=== PATIENT | female | born 1940 | race Caucasian/White ===

== ENCOUNTER 2017-01-20 20:56 | Inpatient (IN) | payer MEDICARE, OTHER ==
[~2017-01-20] VITALS: Ht 157.5 cm; Wt 64.1 kg
[~2017-01-20 20:56] MED LIST: ALEN70TA2 PO; ASCO-294 PO; ASCO500C6 PO; BUSP5TAB3 PO; CHOL10008 PO; CIPR-231 PO; KLO1T PO; LAMO200T PO; LORA1TAB PO; LORA2TAB PO; METR500T PO; MULT1CAP33 PO; PRIM50TA PO; PROP10TA8 PO; SIMV40TA5 PO; VENL75TA3 PO
[2017-01-20 22:16] VITALS: BP 143/89; PULSE 103; RESP 18; O2SAT 95
[2017-01-20 22:46] LABS: BASOPHILS % (AUTO) 0.1 % (0-3); EOSINOPHILS % (AUTO) 1.8 % (0-5); MONOCYTES % (AUTO) 12.6 % (4-12); Mean Corpuscular Volume 94.2 fL (81-100); NEUTROPHILS % (AUTO) 65.2 % (40-74); Platelet Count 276 bil/L (150-400)
[2017-01-20 23:08] LABS: Magnesium 2.1 mg/dL (1.6-2.6)
[2017-01-20 23:56] LABS: APPEARANCE,URINE SLIGHTLY CLOUDY (CLEAR,HAZY); COLOR,URINE STRAW (YELLOW); OCCULT BLOOD,URINE NEGATIVE (NEGATIVE); PH,URINE 8.5 (5.0-8.0); UROBILINOGEN,URINE NORMAL (NORMAL)
--- NOTE | 2017-01-20 23:59 | ED.REPORT ---
HPI-Abd Pain F 40 and Over Date of Service Jan 20, 2017 ED Provider: Dr. Rickey Polo M.D. A 76 year old female with a medical history including diverticulitis, seizure disorder, and hypertension presents to the ED with intermittent LLQ abdominal pain onset one week ago, worsening today. The patient denies nausea, vomiting, diarrhea, constipation, dysuria, fever, or other symptoms. She has had similar symptoms in the past associated with diverticulitis. Nursing Notes Stated Complaint: LOWER ABDOMINAL PAIN Chief Complaint: Female Abdominal Pain Nursing Notes Reviewed: Yes Allergies: Coded Allergies: peanut oil (Verified Allergy, Mild, 01/20/17) Egg White (Verified Allergy, Unknown, 01/20/17) Egg Yolk (Verified Allergy, Unknown, 01/20/17) [place] (Verified Allergy, Unknown, 01/20/17) peanut (Verified Allergy, Unknown, 01/20/17) Scheduled Alendronate Sodium (Fosamax) 70 Mg Tablet 70 MG PO QW Buspirone (Buspirone) 5 Mg Tablet 5 MG PO BID Calcium Carbonate/Vitamin D3 (Os-Ranulfo 500+D3 Caplet) 500 Mg-600 Tablet 1 EACH PO DAILY Lamotrigine (Lamictal) 200 Mg Tablet 250 MG PO AM Lamotrigine (Lamictal) 200 Mg Tablet 250 MG PO HS Multivitamin (Multivitamins) 1 Each Capsule 1 EACH PO DAILY Primidone (Primidone) 50 Mg Tablet 150 MG PO AM Primidone (Primidone) 50 Mg Tablet 200 MG PO HS Primidone (Primidone) 50 Mg Tablet 150 MG PO at 1400 Simvastatin (Simvastatin) 40 Mg Tablet 40 MG PO HS Venlafaxine (Venlafaxine) 75 Mg Tablet 38.5 MG PO AM Scheduled PRN Lorazepam (Lorazepam) 2 Mg Tablet 0.5 MG PO PRN PRN PRN For Insomnia Lorazepam (Lorazepam) 1 Mg Tablet 1 MG PO TID PRN PRN For Anxiety General Time Seen by MD: 23:59 Chief Complaint Abdominal pain Hx Obtained From: Patient Arrived By: Walk-in Sudden in Onset?: No Onset Occurred: 1 week ago Symptom Duration: Intermittent Progression since Onset: Gradually worsening Location: : LLQ Quality: Painful Severity: Current: Moderate Severity: Maximum: Moderate Pertinent Negative: Relieved by nothing Context Related History: Reports: Abdominal surgery, Diverticulosis Recent Healthcare: No recent doctor visit Similar Sx Previous: Yes Past Medical History Past Medical History Notes: Meds not reconciled: Pt has a paper list: Medical 200 mg twice a day Primidone 50 mg 2 in the morning for a bedtime Propranolol 10 mg in the morning Lorazepam 2 mg when necessary Simvastatin 40 mg by mouth daily Clonazepam 1 mg at dinnertime Venlafaxine 75 mg in the morning Buspirone 5 mg at dinnertime Alendronate 70 mg a week Multivitamins and probiotics Past Medical History 1. Diverticulitis 2. Seizure Disorder 3. Hypertension 4. Depression 5. Insomnia 6. Asthma Past Surgical History 1. Tonsillectomy 2. Ovarian Fibroid Removal 3. x2 4. Appendectomy 5. Tubal Ligation 6. Hysterectomy Smoking History Never Smoker Social History Alcohol Use: Denies alcohol use Drug Use: Denies drug use Other Social History: Ambulatory Status Independent Review of Systems Constitutional: Denies: Fever Respiratory: Denies: Non-productive cough, Shortness of breath GI: Reports: Abdominal pain (LLQ), Denies: Constipation, Diarrhea, Nausea, Vomiting Female: Denies: Dysuria Complete sys rev & neg: except as marked. Physical Exam Vital Signs Vital Signs (First) Date Time Temp Pulse Resp B/P Pulse Ox O2 Delivery O2 Flow Rate FiO2 01/20/17 22:16 37.1 103 18 143/89 95 Room Air Initial VS: Reviewed Head / Eyes: Atraumatic, Normocephalic Neck: Supple, Full range of motion Skin: Warm, Dry Neurologic: Alert, Oriented Psychiatric: Mood/affect normal, Behavior normal General/Constitutional: Awake, Alert Respiratory / Chest: Breath sounds NL, Breath sounds = bilat, No respiratory distress Cardiovascular: Heart rate NL, Regular rhythm, Heart sounds NL, No gallop, No murmurs, No rubs Abdomen: Soft, BS normoactive Tenderness/Guarding/Rebound: Positive: Guarding voluntary (LLQ), Tender LLQ... Back: Inspection NL, No CVA tenderness Interpretation & Diagnostics Lab Results Interpretation Result Diagram: 01/20/17223401/20/172234 Test 01/20/17 22:35 01/20/17 23:43 White Blood Count 9.2th/mm3 (3.8-10.1) Red Blood Count 4.16mil/mm3 (3.90-5.20) Hemoglobin 13.3g/dL (12.0-15.6) Hematocrit 39.2% (35.0-46.0) Mean Corpuscular Volume 94.2fL (81-100) Mean Corpuscular Hemoglobin 32.0pg (27.0-35.0) Mean Corpuscular Hemoglobin Concent 33.9% (32.0-37.0) Red Cell Distribution Width 13.8% (12.3-15.4) Platelet Count 276bil/L (150-400) Neutrophils (%) (Auto) 65.2% (40-74) Lymphocytes (%) (Auto) 20.1% (14-46) Monocytes (%) (Auto) 12.6% (4-12) Eosinophils (%) (Auto) 1.8% (0-5) Basophils (%) (Auto) 0.1% (0-3) Sodium Level 139mEq/L (134-144) Potassium Level 4.0mEq/L (3.5-5.2) Chloride Level 100mEq/L (97-108) Carbon Dioxide Level 26mmol/L (18-29) Blood Urea Nitrogen 11mg/dL (8-27) Creatinine 0.64mg/dL (0.57-1.00) Estimat Glomerular Filtration Rate 130mL/min (>59) Glucose Level 120mg/dL (60-99) Calcium Level 9.1mg/dL (8.5-10.1) Magnesium Level 2.1mg/dL (1.6-2.6) Total Bilirubin 0.2mg/dL (0.0-1.2) Aspartate Amino Transf (AST/SGOT) 25U/L (0-50) Alanine Aminotransferase (ALT/SGPT) 17U/L (0-32) Alkaline Phosphatase 132U/L (25-165) Total Protein 7.8g/dL (6.4-8.4) Albumin 4.4g/dL (3.4-5.0) Lipase 24U/L (13-60) Hold [place] Top Tube Received (Received) Urine Color Straw (YELLOW) Urine Appearance Slightly cloudy Urine pH 8.5 (5.0-8.0) Urine Specific [place] 1.010 (1.003-1.035) Urine Protein Negativemg/dL (NEG,TRACE) Urine Glucose (UA) Negativemg/dL (NEGATIVE) Urine Ketones Negativemg/dL (NEGATIVE) Urine Occult Blood Negative (NEGATIVE) Urine Nitrite Negative (NEGATIVE) Urine Bilirubin Negative (NEGATIVE) Urine Urobilinogen Normalmg/dL (NORMAL) Urine Leukocyte Esterase Trace (NEGATIVE) Urine RBC 0-2/hpf (0-2) Urine WBC 0-5/hpf (0-5) Urine Epithelial Cells Occasional/hpf (NONE-MOD) Urine Crystals Amorphous phosphates Urine Bacteria Few/hpf (NONE-FEW) Urine Hyaline Casts None/lpf (NONE) Urine Granular Casts None seen (NONE SEEN) Urine Waxy Casts None seen (NONE SEEN) Urine Red Blood Cell Casts None seen (NONE SEEN) Urine White Blood Cell Casts None seen (NONE SEEN) Urine Mucus None seen (None Seen) Urine Trichomonas None seen (NONE SEEN) Urine Yeast None (NONE SEEN) Urinalysis Comment None Urine Culture Reflexed Indicated CT Abd / Pelvis Interpretation CONCLUSION: Acute sigmoid diverticulitis. Cannot completely exclude microperforation, see comments. Transmitted to ED by Talia Landaverde M.D. at 01/21/2017 - 1:14:16 AM PDT Study type: Abdominal CT IV contrast Interpretation / Wet Read by: Interpret - Radiologist Re-Eval/Medical Decision Med Decision/Clinical Course Recurrent diverticulitis. No findings on exam and possible microperforation was on imaging. She appears nontoxic with a normal white count. We have started Levaquin and Flagyl intravenously. The patient is to be held nothing by mouth. She will be admitted to the hospitalist service with surgery consulting. CODE STATUS discussed with patient. Full code Source of Hx: Old records Re-Evaluation/Progress : Time of Eval: 01:48 Patient Status: Condition improved Re-Evaluation/Progress Note: Discussed with patient lab and CT results, diagnosis, and plan for admit. Patient agrees with plan for care and all questions were addressed. Discussed code status in the presence of her . Patient is FULL CODE. Consultation #1: Referral / Consult Name: Aiswharya Hughes DO Consulted With: Hospitalist Call Returned at: 01:56 Seismic Interpreter: Agrees with eval, Agrees with plan, Accepts admit Consultation #2: Referral / Consult Name: Liborio Chavez MD Consulted With: Surgeon Call Returned at: 02:00 Seismic Interpreter: Will see patient, Agrees with eval, Agrees with plan Counseled Regarding: Diagnosis, Lab results, Need for admission Discharge & Departure Primary Impression: Diverticulitis Diverticulitis site: large intestine Diverticulitis bleeding: without bleeding Diverticulitis complication: with perforation Qualified Code: K57.20 - Diverticulitis of large intestine with perforation and abscess without bleeding Disposition: ADMITTED TO HOSPITAL Discharge Condition All VS Reviewed: Yes Condition: Improved Referrals: Rocio Gipson (PCP) Janell Attestation Portions of this note were transcribed by Chelsea Cannon. I, Dr. Polo, personally performed the history, physical exam, and medical decision-making; I reviewed and confirmed the accuracy of the information in the transcribed note. Signed by: Janell Paris, 01/21/2017, 02:25 copies to: Rocio Gipson Donald L MD Jan 20, 2017 23:59 CHELSEA CANNON January 21, 2017 00:08
[2017-01-21] MEDS ORDERED: lamoTRIgine 25 mg Tablet PO ONE (00:10)
[2017-01-21] MEDS ORDERED: lamoTRIgine 100 mg Tablet PO ONE (00:10)
[2017-01-21] MEDS ORDERED: HYDROmorphone 0.5 mg/0.5 mL iSecure Syringe IVPUSH PRN (00:10)
[2017-01-21] MEDS ORDERED: Ondansetron 2 mg/mL 2 mL Inj IVPUSH PRN ×3 (00:10→02:30)
[2017-01-21] MEDS ORDERED: 0.9% Sodium Chloride 500 ML IV ONE (00:10)
[2017-01-21] MEDS ORDERED: metroNIDAZOLE Inj 500 MG in IV Premix 1 EACH IV ONE (01:50)
[2017-01-21] MEDS ORDERED: levoFLOXacin Inj 500 MG in IV Premix 1 EACH IV ONE (01:50)
[2017-01-21] MEDS: 0.9% Sodium Chloride 1,000 ML IV SCH ×3 (02:29→17:49)
[2017-01-21] MEDS ORDERED: 0.9% Sodium Chloride 1,000 ML IV SCH (02:29)
[2017-01-21] MEDS ORDERED: Alum-Mag Hydrox-Simeth 30 mL Suspension PO PRN (02:30)
[2017-01-21] MEDS ORDERED: Polyethylene Glycol (PEG) 17 Gm Powder PO PRN (02:30)
--- NOTE | 2017-01-21 02:30 | PCM.HPMED ---
Subjective Date of Service January 21, 2017 Primary Provider: Admitting Physician: Aishwarya Hughes DO Primary Care Physician: Rocio Gipson Attending Physician: Aishwarya Hughes DO Admit Status: From the Emergency Department Chief Complaint: abd pain History of Present Illness: 76 year old female with a medical history of diverticulitis, seizure disorder, and hypertension who presented to the ED with intermittent LLQ abdominal pain onset one week ago, worsening today. Patient's reports that patient has been complaining of abdominal pain intermittently for the past week. He noticed that her pain would improve after a bowel movement usually. Today, her pain was sharp and severe, and was somewhat similar to her past episode of diverticulitis. She denies any associated nausea, vomiting, diarrhea, constipation, dysuria, fever, or other symptoms. She has not had any recent surgeries. Reports she was started on Topiramate for her tremors recently. Her seizures have been well controlled recently. In the ED, patient was mildly tachycardic and hypertensive initially, but improved with pain management. Her CBC and CMP and UA were unremarkable. She had a CT of her abdomen that was consistent with acute sigmoid diverticulitis, but microperforation could not be ruled out. Surgery was consulted and patient was placed on Levaquin and FLagyl IV. Review of Systems: complete ROS neg except as stated in HPI Allergies Coded Allergies: peanut oil (Verified Allergy, Mild, 01/20/17) Egg White (Verified Allergy, Unknown, 01/20/17) Egg Yolk (Verified Allergy, Unknown, 01/20/17) [place] (Verified Allergy, Unknown, 01/20/17) peanut (Verified Allergy, Unknown, 01/20/17) Home Medications Fosamax Vitamin C BuSpar Clonazepam 1 mg daily at bedtime Lamotrigine 200 mg twice a day Lorazepam when necessary anxiety Primidone Propranolol Simvastatin Venlafaxine PMH Diverticulosis, with previous bouts of diverticulitis. Seizure disorder since teenage years Hypertension Dyslipidemia Depression with anxiety. Asthma earlier in life, but resolved in recent years. Surgical History 1. Tonsillectomy 2. Ovarian Fibroid Removal 3. x2 4. Appendectomy 5. Tubal Ligation 6. Hysterectomy Family History Denies any fmhx of colon cancer Social History Hx Alcohol Use: No Hx Substance Use: No Hx Tobacco Use: No Smoking Status: Never Smoker Living Arrangement: with Family Exam Vital Signs Vital Sign - Last Date Time Temp Pulse Resp B/P Pulse Ox O2 Delivery O2 Flow Rate FiO2 01/20/17 22:16 37.1 103 18 143/89 95 Room Air Intake and Output 01/20/17 01/20/17 01/21/17 Cumulative From/Thru 15:00 23:00 07:00 01/20/17 22:16 - 01/21/17 00:29 Intake Total 500 ml 500 ml Balance 500 ml 500 ml Intake IV Total 500 ml 500 ml Exam Gen: Well-developed elderly female who appears in no acute distress, alert and oriented 3 HEENT: PERRLA, EOMI, sclerae anicteric, oropharynx moist and pink Neck: Soft, trachea midline, no JVD noted CV: RRR, soft systolic murmur noted, peripheral pulses intact and equal Respiratory: CTA B, no wheezing or rhonchi noted, normal respiratory effort Abdomen: Soft, nondistended, tender to palpation of left lower quadrant, mild guarding, no rebound, no rashes, normoactive bowel sounds MSK: Muscle strength grossly intact, mild tremor of both hands, no edema or cyanosis noted Neuro: Grossly intact, no focal weakness, speech fluent Skin: Warm, dry, intact Psychiatric: Appropriate mood and affect, linear thought process Lab and Diagnostics Result Diagram: 01/20/17223401/20/172234 X-Rays, CTs and MRIs CT Abd pelvis [place] read: Acute sigmoid diverticulitis, microperforation cannot be ruled out Assessment & Plan 76 year old female with a medical history of diverticulitis, seizure disorder, and hypertension who presented to the ED with intermittent LLQ abdominal pain onset one week ago, worsening today. Admitted for diverticulitis treatment #Diverticulitis, acute, Present on Admission Acute Sigmoid Diverticulitis as noted on CT, with moderate LLQ abd pain. No fevers or leukocytosis on admission. Microperforation could not be ruled out. General Surgery consulted IV Levaquin and IV Flagyl started on 01/21 IV NS at 120 mls/hr IV Dilaudid 0.5-1.0 mg for pain management NPO after midnight #Seizure Disorder, POA Stable Continue patient's home medications Med Reconciliation to be performed by Day team. #Anxiety and Depression, POA Stable Continue patient's home medications when appropriate IV Ativan prn anxiety and insomnia #Hypertension, Essential, POA Stable Continue patient's home medications when appropriate CODE STATUS: Full resuscitation Disposition: Patient is admitted under observation status with expected length of stay less than 2 nights due to his of adverse events and medical complexity. Pain Evaluation: Adequate Pain Control VTE Prophylaxis: Sub-Q Heparin (Unfractionated), SCDs Resuscitation Status: CPR: Attempt Resuscitation Attending Statement The patient was seen and examined together with house staff on 01/21/2017 and I agree with the history, exam and plan as outlined in the note above. Joseph Rob DO January 21, 2017 02:30 Aishwarya Hughes DO January 21, 2017 05:17
[2017-01-21 03:06] VITALS: BP 145/78; PULSE 69; RESP 18; O2SAT 97
[2017-01-21] MEDS ORDERED: PRIM50TA PO (03:28)
[2017-01-21] MEDS ORDERED: CALC1TAB23 PO (03:28)
[2017-01-21] MEDS ORDERED: CALC-72 PO (03:28)
--- NOTE | 2017-01-21 04:32 | NUR ---
Admit Pt admitted to [facility] at 0300 from ER. Pt able to slide by herself from gurney to bed. A/O x4, [place] equally. Pt denies pain or nausea at this time. Flagyl IV finished and Levaquin hung 100 ml/hr. NS started at 100ml/hr as well. Pt was educated on NPO diet. Pt reporting anxiety and was given Ativan 1mg IV with good result. SCDs are on. spending the night. Pt was oriented to room and call light.
[2017-01-21 06:03] LABS: BASOPHILS % (AUTO) 0.1 % (0-3); EOSINOPHILS % (AUTO) 1.1 % (0-5); MONOCYTES % (AUTO) 11.8 % (4-12); NEUTROPHILS % (AUTO) 66.2 % (40-74); Platelet Count 255 bil/L (150-400)
[2017-01-21] MEDS: Piperacillin-Tazo 3.375 Gm Inj 3.375 GM in Dextrose 5% Minibag Plus 50 ML IV SCH ×2 (08:42→16:38)
[2017-01-21] MEDS ORDERED: LAMOTRIGINE 250 MG PO SCH ×2 (08:55→21:00)
--- NOTE | 2017-01-21 09:03 | PCM.CONSUR ---
Subjective Date of Service: January 21, 2017 History of Present Illness Gen. surgery consultation: Attending physician Dr. Bryan, Resident physician Dr. Smallwood. Mrs. Holman is a 76-year-old female with past medical history of diverticulitis and hypertension with multiple abdominal surgeries who was admitted secondary to worsening left lower quadrant abdominal pain times one week. She states that over the past week her abdominal pain has increased in severity and she described it as sharp and severe just prior to admission. She reports this pain to be somewhat similar to her last episode of diverticulitis though this episode seems to be focused only in the LLQ where as in the past the pain radiating from LLQ to RLQ. She denies nausea, vomiting, diarrhea, constipation, hematochezia, fever, chills. She has had two normal bowel movements in the past 48 hrs. She was hospitalized for diverticulitis 12/2014, discharged with ABX. Endoscopy 10/2015 showed multiple colon polyps, diverticulitis and hemorrhoids. WBC has trended down from 9.2 on admit to 7.5. She remained afebrile and abdominal pain is improving. CT showed acute sigmoid diverticulitis, cannot exclude microperforation. Reason for Consultation Diverticulitis Allergy Allergies: Coded Allergies: peanut oil (Verified Allergy, Mild, 01/20/17) Egg White (Verified Allergy, Unknown, 01/20/17) Egg Yolk (Verified Allergy, Unknown, 01/20/17) [place] (Verified Allergy, Unknown, 01/20/17) peanut (Verified Allergy, Unknown, 01/20/17) Medications Alendronate Sodium (Fosamax) 70 Mg Tablet 70 MG PO QW (Reported) Amoxicillin/Clav K 875-125 mg (Augmentin 875-125 mg) 1 Each Tablet 1 TABLET PO BID Prescribed by: OLE MEJIA DO Buspirone (Buspirone) 5 Mg Tablet 5 MG PO BID (Reported) Last Taken: 5 mg on 01/20/17 0800 Calcium Carbonate/Vitamin D3 (Os-Ranulfo 500+ D3 Caplet) 500 Mg-600 Tablet 1 EACH PO DAILY (Reported) Last Taken: 1 tab on 01/20/17 0800 Lamotrigine (Lamictal) 200 Mg Tablet 250 MG PO AM (Reported) Lamotrigine (Lamictal) 200 Mg Tablet 250 MG PO HS (Reported) Last Taken: 250mg on 5/1/17 0029 Lorazepam (Lorazepam) 2 Mg Tablet 0.5 MG PO PRN PRN PRN For Insomnia (Reported) Lorazepam (Lorazepam) 1 Mg Tablet 1 MG PO TID PRN PRN For Anxiety (Reported) Multivitamin (Multivitamins) 1 Each Capsule 1 EACH PO DAILY (Reported) Last Taken: 1 tab on 01/20/17 0800 Primidone (Primidone) 50 Mg Tablet 150 MG PO AM (Reported) Primidone (Primidone) 50 Mg Tablet 200 MG PO HS (Reported) Last Taken: 200mg on 01/21/17 0029 Primidone (Primidone) 50 Mg Tablet 150 MG PO at 1400 (Reported) Simvastatin (Simvastatin) 40 Mg Tablet 40 MG PO HS (Reported) Last Taken: 40 mg on 01/19/17 2100 Topiramate (Topamax) 25 Mg Tablet 25 MG PO HS Prescribed by: OLE MEJIA DO Venlafaxine (Venlafaxine) 75 Mg Tablet 37.5 MG PO AM (Reported) Last Taken: 37.5 mg on 01/20/17 0800 Discontinued Medications Ascorbate Calcium (Vitamin C) 500 Mg Tablet 500 MG PO AM (Reported) Ascorbic Acid (Vitamin C) 500 Mg Capsule.er 500 MG PO DAILY (Reported) Calcium Carbonate/Vitamin D3 (Calcium 500 + Vit D 200 Tablet) 1 Each Tablet 1 EACH PO (Reported) Cholecalciferol (Vitamin D3) (Vitamin D3) 1,000 Unit Tab.chew 1,000 UNIT PO DAILY (Reported) Ciprofloxacin (Cipro) 500 Mg Tablet 500 MG PO BID Prescribed by: YVONNE DYER MD Clonazepam (Clonazepam) 1 Mg Tab 1 MG PO DailyPM (Reported) Metronidazole (Flagyl) 500 Mg Tablet 500 MG PO TID Prescribed by: YVONNE DYER MD Propranolol HCl (Propranolol HCl) 10 Mg Tablet 10 MG PO AM (Reported) Past Surgical History Surgeries: Yes Patient/Family Past Surgical: Positive for:: Accept Blood Products?, Denies:: Anesthesia Reactions, Blood Transfuse Reaction, Blood Transfusions, Malignant Hyperthermia Additional Information Past surgical history: 1. Tonsillectomy 2. Ovarian Fibroid Removal 3. x2 4. Appendectomy 5. Tubal Ligation 6. Hysterectomy Social History Hx Alcohol Use: No Hx Substance Use: No Hx Tobacco Use: No PMH HEENT History History of ENT Problems?: No HEENT History: Denies:: Abnormal Airway Cataracts Difficult Intubation Dysphagia Glaucoma Hearing Problem Sinus Problem Cardiovascular History History of Heart Problems?: No Cardiovascular History: Denies:: AICD Atrial Fibrillation Chest Pain Congestive Heart Failure Hypertension Pacemaker Valvular Heart Disease Respiratory History of Respiratory Problem: Yes Respiratory History: Positive for:: Asthma (flares up with cats/dogs) Denies:: COPD Cough Dyspnea Hemoptysis Pneumonia Tuberculosis Neurological History Hx Neurologic Problems?: Yes Neurological History: Positive for:: Headaches Seizures (tremors as well) Denies:: CVA Gastrointestinal History HX of GI Problems?: Yes Gastrointestinal History: Positive for:: Diverticulitis Denies:: Cirrhosis Gastroesphageal Reflux Hiatal Hernia Rectal Bleeding Genitourinary History Hx of Gu Problems?: Yes Genitourinary History: Positive for: Urinary Tract Infection Female/Male History Reproductive History Female: Denies: Currently ? Problems with Breasts? Musculoskeletal History Hx Musculoskeletal Problems?: No Musculoskeletal History: Denies:: Joint Replacement Psycho Social History Hx of Psycho/Social Problems?: Yes Psycho Social History: Positive for:: Anxiety Hx Depression Denies:: Bipolar Disorder Suicide Attempt Other History Hx Any Other Health Problems?: No Other History: Positive for:: Hospitalization (diverticulitis ) Denies:: Cancer Thyroid Disease Diabetes: No Social History Hx Alcohol Use: NoHx Substance Use: NoHx Tobacco Use: No Smoking Status: Never Smoker Living Arrangement: with Family Family History Family History: Denies any family history of colon cancer Objective Exam Vital Signs & I/O Vital Sign- Last 8 Hours Date Time Temp Pulse Resp B/P Pulse Ox O2 Delivery O2 Flow Rate FiO2 01/21/17 03:06 36.4 69 18 145/78 97 Room Air 01/21/17 02:46 37.1 103 16 143/89 95 Room Air Intake and Output- Last 8 Hour 01/21/17 Cumulative From/Thru 07:00 01/20/17 22:16 - 01/21/17 05:43 Intake Total 864 ml 864 ml Output Total 350 ml 350 ml Balance 514 ml 514 ml Intake Oral 0 ml 0 ml IV Total 864 ml 864 ml Output Urine Total 350 ml 350 ml # Bowel Movements 0 0 Lab & Micro Results Laboratory Tests Test 01/20/17 22:35 01/20/17 23:43 01/21/17 05:22 White Blood Count 9.2th/mm3 (3.8-10.1) 7.5th/mm3 (3.8-10.1) Red Blood Count 4.16mil/mm3 (3.90-5.20) 3.78mil/mm3 (3.90-5.20) Hemoglobin 13.3g/dL (12.0-15.6) 12.1g/dL (12.0-15.6) Hematocrit 39.2% (35.0-46.0) 36.3% (35.0-46.0) Mean Corpuscular Volume 94.2fL (81-100) 96.0fL (81-100) Mean Corpuscular Hemoglobin 32.0pg (27.0-35.0) 32.0pg (27.0-35.0) Mean Corpuscular Hemoglobin Concent 33.9% (32.0-37.0) 33.3% (32.0-37.0) Red Cell Distribution Width 13.8% (12.3-15.4) 13.7% (12.3-15.4) Platelet Count 276bil/L (150-400) 255bil/L (150-400) Neutrophils (%) (Auto) 65.2% (40-74) 66.2% (40-74) Lymphocytes (%) (Auto) 20.1% (14-46) 20.7% (14-46) Monocytes (%) (Auto) 12.6% (4-12) 11.8% (4-12) Eosinophils (%) (Auto) 1.8% (0-5) 1.1% (0-5) Basophils (%) (Auto) 0.1% (0-3) 0.1% (0-3) Sodium Level 139mEq/L (134-144) 143mEq/L (134-144) Potassium Level 4.0mEq/L (3.5-5.2) 4.4mEq/L (3.5-5.2) Chloride Level 100mEq/L (97-108) 104mEq/L (97-108) Carbon Dioxide Level 26mmol/L (18-29) 25mmol/L (18-29) Blood Urea Nitrogen 11mg/dL (8-27) 9mg/dL (8-27) Creatinine 0.64mg/dL (0.57-1.00) 0.60mg/dL (0.57-1.00) Estimat Glomerular Filtration Rate 130mL/min (>59) 140mL/min (>59) Glucose Level 120mg/dL (60-99) 106mg/dL (60-99) Calcium Level 9.1mg/dL (8.5-10.1) 8.6mg/dL (8.5-10.1) Magnesium Level 2.1mg/dL (1.6-2.6) Total Bilirubin 0.2mg/dL (0.0-1.2) Aspartate Amino Transf (AST/SGOT) 25U/L (0-50) Alanine Aminotransferase (ALT/SGPT) 17U/L (0-32) Alkaline Phosphatase 132U/L (25-165) Total Protein 7.8g/dL (6.4-8.4) Albumin 4.4g/dL (3.4-5.0) Lipase 24U/L (13-60) Hold [place] Top Tube Received (Received) Urine Color Straw (YELLOW) Urine Appearance Slightly cloudy Urine pH 8.5 (5.0-8.0) Urine Specific [place] 1.010 (1.003-1.035) Urine Protein Negativemg/dL (NEG,TRACE) Urine Glucose (UA) Negativemg/dL (NEGATIVE) Urine Ketones Negativemg/dL (NEGATIVE) Urine Occult Blood Negative (NEGATIVE) Urine Nitrite Negative (NEGATIVE) Urine Bilirubin Negative (NEGATIVE) Urine Urobilinogen Normalmg/dL (NORMAL) Urine Leukocyte Esterase Trace (NEGATIVE) Urine RBC 0-2/hpf (0-2) Urine WBC 0-5/hpf (0-5) Urine Epithelial Cells Occasional/hpf (NONE-MOD) Urine Crystals Amorphous phosphates Urine Bacteria Few/hpf (NONE-FEW) Urine Hyaline Casts None/lpf (NONE) Urine Granular Casts None seen (NONE SEEN) Urine Waxy Casts None seen (NONE SEEN) Urine Red Blood Cell Casts None seen (NONE SEEN) Urine White Blood Cell Casts None seen (NONE SEEN) Urine Mucus None seen (None Seen) Urine Trichomonas None seen (NONE SEEN) Urine Yeast None (NONE SEEN) Urinalysis Comment None Urine Culture Reflexed Indicated C-Reactive Protein 4.6mg/dL (0.0-0.5) Microbiology 01/20/17 Urine Culture, Received Pending Result Diagram: 01/21/1752101/21/17521 Review of Systems: A comprehensive review of systems was conducted with the patient and found to be negative except as above in the history of present illness. H&P Surgical Exam Exam Additional Information General: Awake and alert in no acute distress, well-developed, well-nourished, appropriately interactive HEENT: Normocephalic, atraumatic. Neck: Supple with full range of motion. No jugular venous distension. Cardiovascular: Regular rate and rhythm with no murmurs, rubs, or gallops appreciated Pulmonary: Clear to auscultation bilaterally upper anterior lobes with no crackles or wheezes.. Normal respiratory effort with no use of accessory muscles. Abdomen: Bowel tones present. Soft, nontender to palpation left lower quadrant. No rigidity. Mild guarding left lower quadrant. Extremities: No clubbing, cyanosis, edema, or lymphadenopathy appreciated. Skin: Normal temperature, turgor, and texture Neurological: Cranial nerves grossly intact. Psychiatric: Normal mood and affect. Alert and oriented to person, place, and time. Assessment & Plan Assessment Acute on chronic Diverticulitis. Present on admission. Ongoing - Acute sigmoid diverticulitis seen on CT, cannot rule out microperforation - Continue antibiotics Zosyn and levofloxacin - Continue IV normal saline - Continue IV Dilaudid for pain management - Continue bowel rest Gen. surgery will continue to follow this patient, conservative management with IV fluids, antibiotics and bowel rest for now VTE Prophylaxis: Sub-Q Heparin (Unfractionated), SCDs VTE Mechanical Devices: Intermittant Pneumatic CD Resuscitation Status: CPR: Attempt Resuscitation Attending Statement: I personally interviewed and examined the pt, and I agree with Dr. Smallwood's assessment and plan. IV abx and bowel rest. RAINE SMALLWOOD DO January 21, 2017 09:03 Nabeel Bryan MD January 23, 2017 14:28
[2017-01-21] MEDS ORDERED: LORazepam 1 mg Tablet PO PRN (09:05)
[2017-01-21] MEDS: Heparin 5,000 Unit/mL Inj SUBQ SCH ×2 (09:57→16:36)
[2017-01-21] MEDS: lamoTRIgine 25 mg Tablet PO SCH ×2 (09:58→20:01)
[2017-01-21] MEDS: lamoTRIgine 100 mg Tablet PO SCH ×2 (09:58→20:00)
[2017-01-21] MEDS: BusPIRone 15 mg Dividose Tablet PO SCH ×2 (09:59→20:01)
--- NOTE | 2017-01-21 10:03 | DRSVH ---
PROCEDURE: CT ABDOMEN AND PELVIS WITH CONTRAST ([id number]) INDICATIONS: llq abd pain TECHNIQUE: After the administration of intravenous contrast, 5 mm thick sections acquired from the diaphragm to the symphysis. 5 mm coronal and sagittal reformats were acquired. For radiation dose reduction, the following was used: automated exposure control, adjustment of mA and/or kV according to patient jignesh navarrete. COMPARISON: [facility], CT, ABD/PELVIS W/CON (PN), 01/02/2015, 1:35. FINDINGS: Image quality: Excellent. ABDOMEN: Lung bases: Lung bases are clear. Heart size is normal. Solid organs: Liver and spleen are normal in size and enhancement. Gallbladder is unremarkable. Bi liary system is non dilated. Pancreas enhances normally. No adrenal nodules. Kidneys demonstrate n ormal size and enhancement, without hydronephrosis. Nonobstructing punctate inferior left renal pole calcification. Peritoneum and bowel: Bowel loops are nonobstructed. There is a mild appearance of wall thickening w ithin the sigmoid colon with prominent pericolonic fat stranding. Scattered fluid is present within t his region. In addition, there is focal air within the wall of the sigmoid colon within this inflamed region. Nodes and vessels: No retroperitoneal or mesenteric adenopathy by size criteria. Aorta and inferior vena cava are normal in size. Miscellaneous: No ventral hernias. PELVIS: Genitourinary: Bladder wall thickness is normal. Miscellaneous: No inguinal hernias or adenopathy. Bones: No suspicious bony lesions. L4 compression fracture is unchanged. IMPRESSION: 1. Sigmoid colonic diverticula with wall thickening and surrounding inflammatory change most consiste nt with colitis secondary to diverticulitis. As noted above, there is a prominent focus of air within the sigmoid colonic wall at the area of prominent inflammation and fluid. A contained perforation/mi croperforation cannot be excluded. No peritoneal free air is identified. Dictated by: Stacey Mason M.D. on 01/21/2017 at 10:00 Approved by: Stacey Mason M.D. on 01/21/2017 at 10:02
[2017-01-21] MEDS ORDERED: metroNIDAZOLE Inj 500 MG in IV Premix 1 EACH IV SCH (12:00)
[2017-01-21] MEDS ORDERED: HYDROmorphone 1 mg/mL Inj IVPUSH PRN (12:25)
--- NOTE | 2017-01-21 12:37 | NUR ---
Case Management- IMM explained and signed by patient. Copy given to patient and orginal placed in chart. Dana COLBERT/SIRIA
--- NOTE | 2017-01-21 14:41 | NUR ---
Social Work: Initial Assessment D: EMR reviewed. Pt is a 76 y/o female admitted for diverticulitis per H&P. SW met with pt and at bedside to conduct initial assessment. Pt was alert and oriented x3. Pt's insurance is Medicare and Life Insurance Supplemental. Pt's PCP is CANDACE Antoine. Pt has no LTC or VA insurance. Pt has no SNF history. Pt has had HH services with [facility] in the past. Pt has completed DPOA/advanced directive ppw - SW encourage pt to provide a copy to the hospital. Pt's DPOA is rebekah Ambrosegaurilupillo. Pt lives in a multi-story (2 internal steps, 0 external steps) home with Lalo Holman in [place] (primary contact [phone]). Pt is independent at baseline and does not use any DME. Pt is independent with ADL's. Pt drives. Pt stated that she needed HH for after being admitted for diverticulitis 2 yrs ago. SW reviewed EMR and did not see orders for PT. SW discussed possibility of HH with [facility] if recommended by MD or PT. Pt was open to discussing options if needs arise. No PT needs at this time but this could change. SW will continue to follow. Assessment: Pt who is independent at baseline. Pt who may benefit from PT with HH if deemed necessary by MD or PT. SW will continue to follow. Plan: Pt will discharge home via POV with . SW will continue to follow to rule out HH. CICI Ltitle Addendum: 01/21/17 at 1453 by CHRIS DOYLE Amended: Links added.
[2017-01-21 15:33] VITALS: BP 107/66; PULSE 80; RESP 16; O2SAT 96
--- NOTE | 2017-01-21 15:54 | PCM.PNMED ---
Subjective Date of Service January 21, 2017 Subjective Patient was seen and examined at bedside today. Patient denies any chest pain, shortness of breath, nausea, vomiting, diarrhea. Overnight events: None Exam Vital Signs Vital Sign - Last Date Time Temp Pulse Resp B/P Pulse Ox O2 Delivery O2 Flow Rate FiO2 01/21/17 15:33 36.6 80 16 107/66 96 Room Air Intake and Output 01/20/17 01/20/17 01/21/17 Cumulative From/Thru 14:59 22:59 06:59 01/20/17 22:16 - 01/21/17 05:43 Intake Total 864 ml 864 ml Output Total 350 ml 350 ml Balance 514 ml 514 ml Intake Oral 0 ml 0 ml IV Total 864 ml 864 ml Output Urine Total 350 ml 350 ml # Bowel Movements 0 0 Exam Physical Exam: GEN: Patient was awake, alert, responding appropriately to questions HEENT: Pupils equal round and reactive to light, extraocular eye muscles intact , Neck soft supple, trachea midline, nomocephalic/atraumatic CV: +S1/S2, regular rate and rhythm, no murmurs auscultated Respiratory: CTAB, no wheezes, rales, rhonchi GI: +bowel sounds x4, soft, compressible, left lower quadrant tenderness to palpation EXT: no clubbing, cyanosis, edema Neuro: Cranial nerves II-XII grossly intact Psych: mood and affect were appropriate IVs and Medications Medications Reviewed: Medications were reviewed in detail Lab and Diagnostics Result Diagram: 01/21/1752101/21/17521 X-Rays, CTs and MRIs CT Abd pelvis [place] read: Acute sigmoid diverticulitis, microperforation cannot be ruled out Assessment & Plan 76 year old female with a medical history of diverticulitis, seizure disorder, and hypertension who presented to the ED with intermittent LLQ abdominal pain onset one week ago, worsening today. Admitted for diverticulitis treatment Diverticulitis, acute, Present on Admission -Acute Sigmoid Diverticulitis as noted on CT, with moderate LLQ abd pain. No fevers or leukocytosis on admission. Microperforation could not be ruled out. -General Surgery consulted -Discontinue IV Levaquin and IV Flagyl started on 01/21 -Start IV Zosyn -Continue IV fluids -Pain control with IV Dilaudid 1 mg every 4 hours when necessary pain -Continue nothing by mouth Seizure Disorder, (currently stable) -Restart Lamictal 250 mg twice a day -Restart primidone 200 mg by mouth daily at bedtime, 150 mg in the morning, and 150 mg at 2:00 in the afternoon -Restart patient's Topamax at 25 mg by mouth daily at bedtime Anxiety and Depression, POA -Continue patient's home Effexor 37.5 mg by mouth daily -Ativan IV 1 mg every 4 hours when necessary anxiety or agitation -Restart patient's home dose of BuSpar 5 mg by mouth twice a day -Restart patient's home dose of Ativan 0.5 mg by mouth daily at bedtime when necessary insomnia Hypertension, Essential, POA (stable) -Restart patient's home medication of 10 mg of propanolol daily CODE STATUS: Full resuscitation Disposition: The patient seems to be progressing well. At this time surgery agrees that the patient is not a surgical candidate and we will continue to treat with IV antibiotics. If the patient does not respond to IV antibiotics then surgery may be considered. We will continue to monitor the patient. VTE Prophylaxis: Sub-Q Heparin (Unfractionated), SCDs VTE Mechanical Devices: Intermittant Pneumatic CD Resuscitation Status: CPR: Attempt Resuscitation Gloria Boggs DO January 21, 2017 15:42
[2017-01-21] MEDS ORDERED: levoFLOXacin Inj 500 MG in IV Premix 1 EACH IV SCH (20:00)
[2017-01-21 20:45] VITALS: BP 128/74; PULSE 69; RESP 20; O2SAT 95
[2017-01-21] MEDS ORDERED: LORazepam 0.5 mg Tablet PO PRN (21:00)
[2017-01-22 00:40] VITALS: BP 130/77; PULSE 76; RESP 18; O2SAT 96
[2017-01-22] MEDS: Piperacillin-Tazo 3.375 Gm Inj 3.375 GM in Dextrose 5% Minibag Plus 50 ML IV SCH ×3 (00:48→17:22)
[2017-01-22] MEDS: Heparin 5,000 Unit/mL Inj SUBQ SCH ×3 (00:48→17:21)
[2017-01-22] MEDS: 0.9% Sodium Chloride 1,000 ML IV SCH ×3 (03:25→17:23)
--- NOTE | 2017-01-22 05:07 | NUR ---
GI Tolerating conservative clear liquids without increase in pain or nausea. Able to ambulate to BR. No anxiety, observed sleeping for majority of night. Hourly rounding ongoing.
[2017-01-22 05:39] VITALS: BP 136/77; PULSE 72; RESP 18; O2SAT 99
--- NOTE | 2017-01-22 06:18 | PCM.PNSURG ---
Subjective Visit Information: Reason for Visit Diverticulitis Surgery/Surgery Date Post-Op Day # Date of Admission: January 21, 2017 at 02:08 Hospital Day # Subjective: continuing to feel better, no n/v, tolerating clears, passing flatus, no BM yet Objective Objective Awake in bed Abd: soft, less tender on palpation at LLQ compared to yesterday, no peritoneal signs Vital Sign- Last 8 Hours Date Time Temp Pulse Resp B/P Pulse Ox O2 Delivery O2 Flow Rate FiO2 01/22/17 05:39 36.5 72 18 136/77 99 Room Air 01/22/17 00:40 36.6 76 18 130/77 96 Room Air Intake and Output- Last 8 Hour 01/22/17 Cumulative From/Thru 06:59 01/20/17 22:16 - 01/22/17 05:58 Intake Total 1357 ml 3182 ml Output Total 850 ml Balance 1357 ml 2332 ml Intake Oral 200 ml IV Total 1357 ml 2982 ml Output Urine Total 850 ml # Bowel Movements 0 Result Diagram: 01/21/17 0522 01/21/17 0522 Assessment & Plan Impression Diverticulitis, improving clinically Problems: Plan Await labs this am. OK to advance diet Ambulate Probably OK to d/c home today or tomorrow VTE Prophylaxis: Sub-Q Heparin (Unfractionated), SCDs Resuscitation Status: CPR: Attempt Resuscitation Nabeel Bryan MD January 22, 2017 06:18
[2017-01-22 06:29] LABS: Mean Corpuscular Hemoglobin 32.2 pg (27.0-35.0); Mean Corpuscular Volume 97.5 fL (81-100)
[2017-01-22] MEDS: lamoTRIgine 25 mg Tablet PO SCH ×2 (08:40→20:16)
[2017-01-22] MEDS: lamoTRIgine 100 mg Tablet PO SCH ×2 (08:40→20:17)
[2017-01-22] MEDS: BusPIRone 15 mg Dividose Tablet PO SCH ×2 (08:42→20:14)
[2017-01-22 15:44] VITALS: BP 132/77; PULSE 83; RESP 15; O2SAT 98
--- NOTE | 2017-01-22 17:26 | NUR ---
spiritual care: pt request conversational visit wiht pt and . she reflected on medical news, apprehensiveness and hopes. couple shared personal history, [facility] and spiritual practices. active at [facility]. prayer. pt hopeful about discharge tomorrow
--- NOTE | 2017-01-22 18:15 | PCM.PNMED ---
Subjective Date of Service January 22, 2017 Subjective Patient was seen and examined at bedside today. Patient denies any chest pain, shortness of breath, nausea, vomiting, diarrhea. Patient states that her left lower quadrant pain is significantly improved. Overnight events: None Exam Vital Signs Vital Sign - Last Date Time Temp Pulse Resp B/P Pulse Ox O2 Delivery O2 Flow Rate FiO2 01/22/17 15:44 36.3 83 15 132/77 98 Room Air Intake and Output 01/21/17 01/21/17 01/22/17 Cumulative From/Thru 15:00 23:00 07:00 01/20/17 22:16 - 01/22/17 06:19 Intake Total 961 ml 2077 ml 3902 ml Output Total 500 ml 300 ml 1150 ml Balance 461 ml 1777 ml 2752 ml Intake Oral 200 ml 720 ml 920 ml IV Total 761 ml 1357 ml 2982 ml Output Urine Total 500 ml 300 ml 1150 ml # Voids 2 2 # Bowel Movements 0 0 Exam Physical Exam: GEN: Patient was awake, alert, responding appropriately to questions HEENT: Pupils equal round and reactive to light, extraocular eye muscles intact , Neck soft supple, trachea midline, nomocephalic/atraumatic CV: +S1/S2, regular rate and rhythm, no murmurs auscultated Respiratory: CTAB, no wheezes, rales, rhonchi GI: +bowel sounds x4, soft, compressible, mild left lower quadrant pain and tender to palpation EXT: no clubbing, cyanosis, edema Neuro: Cranial nerves II-XII grossly intact Psych: mood and affect were appropriate IVs and Medications Medications Reviewed: Medications were reviewed in detail Lab and Diagnostics Result Diagram: 01/22/17 0535 01/22/17 0535 X-Rays, CTs and MRIs CT Abd pelvis [place] read: Acute sigmoid diverticulitis, microperforation cannot be ruled out Assessment & Plan 76 year old female with a medical history of diverticulitis, seizure disorder, and hypertension who presented to the ED with intermittent LLQ abdominal pain onset one week ago, worsening today. Admitted for diverticulitis treatment Diverticulitis, acute, Present on Admission -Acute Sigmoid Diverticulitis as noted on CT, with moderate LLQ abd pain. No fevers or leukocytosis on admission. Microperforation could not be ruled out. -General Surgery following -Discontinue IV Levaquin and IV Flagyl started on 01/21 -Continue IV Zosyn -Continue IV fluids -Pain control with IV Dilaudid 1 mg every 4 hours when necessary pain -Advance diet to soft Seizure Disorder, (currently stable) -Continue Lamictal 250 mg twice a day -Continue primidone 200 mg by mouth daily at bedtime, 150 mg in the morning, and 150 mg at 2:00 in the afternoon -Continue patient's Topamax at 25 mg by mouth daily at bedtime Anxiety and Depression, POA -Continue patient's home Effexor 37.5 mg by mouth daily -Ativan IV 1 mg every 4 hours when necessary anxiety or agitation -Continue patient's home dose of BuSpar 5 mg by mouth twice a day -Continue patient's home dose of Ativan 0.5 mg by mouth daily at bedtime when necessary insomnia Hypertension, Essential, POA (stable) -Continue patient's home medication of 10 mg of propanolol daily CODE STATUS: Full resuscitation Disposition: The patient seems to be progressing well. The patient has tolerated a clear liquid diet and has been progressed to a soft diet. If the patient is able to tolerate that she will be discharged home tomorrow with Augmentin. The patient's case was discussed with general surgery (Dr. Bryan) who agrees that along with the patient is tolerating her diet she should be cleared to be discharged home tomorrow. VTE Prophylaxis: Sub-Q Heparin (Unfractionated), SCDs VTE Mechanical Devices: Intermittant Pneumatic CD Resuscitation Status: CPR: Attempt Resuscitation Gloria Boggs DO January 22, 2017 18:15
--- NOTE | 2017-01-22 18:50 | NUR ---
Ambulation ambulating well SBA with steady gait but essential tremors. Care continues
[2017-01-22 20:19] VITALS: BP 148/67; PULSE 88; RESP 18; O2SAT 97
--- NOTE | 2017-01-22 21:07 | NUR ---
Diet P- Patient is on a soft diet for bowel rest, but was not satisfied with some of the options, and asked about the salmon. I- Nursing staff approved salmon for the patient's diet. E- Patient tolerated salmon well and ate half of the serving portion.
[2017-01-23] MEDS: Heparin 5,000 Unit/mL Inj SUBQ SCH ×2 (01:18→09:12)
[2017-01-23] MEDS: Piperacillin-Tazo 3.375 Gm Inj 3.375 GM in Dextrose 5% Minibag Plus 50 ML IV SCH ×2 (01:19→09:12)
--- NOTE | 2017-01-23 03:17 | NUR ---
Activity Patient resting comfortably. No complaints of abdominal pain. VSS. Patient ambulating well to BR. Call light within reach. Care continues.
[2017-01-23] MEDS: 0.9% Sodium Chloride 1,000 ML IV SCH (04:29)
[2017-01-23 05:52] VITALS: BP 133/76; PULSE 83; RESP 16; O2SAT 98
[2017-01-23] MEDS: BusPIRone 15 mg Dividose Tablet PO SCH (09:02)
[2017-01-23] MEDS: lamoTRIgine 100 mg Tablet PO SCH (09:04)
[2017-01-23] MEDS: lamoTRIgine 25 mg Tablet PO SCH (09:04)
[2017-01-23 09:19] VITALS: BP 126/75; PULSE 92; RESP 17; O2SAT 97
[2017-01-23] MEDS ORDERED: AMOX-366 PO (09:23)
[2017-01-23] MEDS ORDERED: TOPI25TA26 PO (09:23)
--- NOTE | 2017-01-23 09:25 | NUR ---
Social Work: Readiness for Discharge D: EMR reviewed. Pt is on day 2 of hospitalization. Pt will be discharged today with no needs. SW will continue to follow. A: Pt who is independent at baseline and will discharge home no needs when medically stable. P: Pt will discharge home with via POV. No anticipated discharge needs at this time. CICI Little
--- NOTE | 2017-01-23 09:28 | PCM.DIMED ---
Discharge Instructions Date of Service January 23, 2017 Dates of Hospitalization January 21, 2017 at 02:08 Discharge Diagnosis Discharge Diagnosis Diverticulitis History of seizure disorder Anxiety/depression Hypertension Medication Instructions Please eat yogurt or take lactobacillus pills with her new medication Augmentin. This medication has a tendency to cause loose stools and eating yogurt or taking lactobacillus pills helps to decrease the side effect Diet Other (gradually return to normal diet avoid nuts and seeds. Return to your diet for diverticulitis) Activity No restrictions (gradually return to normal daily activities) Patient Instructions Follow-up Provider: Rocio Gipson Follow-up with PCP in: 1 week (if an appointment has not been made please call to schedule an appointment) Provider: Nabeel Bryan MD Follow-up in: Other (at this time no follow-up appointment is needed with Dr. Bryan however if he would like to discuss any surgical options for diverticulitis please call his office and make an appointment. [phone] ) Gloria Boggs DO January 23, 2017 09:28
--- NOTE | 2017-01-23 09:55 | PCM.DC.MED ---
Discharge Summary Date of Service January 23, 2017 Dates of Hospitalization Date of Hospital Admission January 21, 2017 at 02:08 Date of Discharge: January 23, 2017 Providers: Admitting Physician: Aishwarya Hughes DO Primary Care Physician: Rocio Gipson Attending Physician: Aishwarya Hughes DO Diagnosis at Time of Discharge Diagnosis at Time of Discharge Diverticulitis History of seizure disorder Anxiety/depression Hypertension Procedures XRay, CTs & MRIs CT Abd pelvis [place] read: Acute sigmoid diverticulitis, microperforation cannot be ruled out Brief History 76 year old female with a medical history of diverticulitis, seizure disorder, and hypertension who presented to the ED with intermittent LLQ abdominal pain onset one week ago, worsening today. Patient's reports that patient has been complaining of abdominal pain intermittently for the past week. He noticed that her pain would improve after a bowel movement usually. Today, her pain was sharp and severe, and was somewhat similar to her past episode of diverticulitis. She denies any associated nausea, vomiting, diarrhea, constipation, dysuria, fever, or other symptoms. She has not had any recent surgeries. Reports she was started on Topiramate for her tremors recently. Her seizures have been well controlled recently. In the ED, patient was mildly tachycardic and hypertensive initially, but improved with pain management. Her CBC and CMP and UA were unremarkable. She had a CT of her abdomen that was consistent with acute sigmoid diverticulitis, but microperforation could not be ruled out. Surgery was consulted and patient was placed on Levaquin and FLagyl IV. Hospital Course 76 year old female with a medical history of diverticulitis, seizure disorder, and hypertension who presented to the ED with intermittent LLQ abdominal pain onset one week ago, worsening today. Admitted for diverticulitis treatment. The patient was admitted for acute diverticulitis flare. The patient responded well to IV antibiotics and was able to be advanced back to a soft diet. The patient has been encouraged to continue with the soft diet and gradually reintroduce foods back to her diet. The patient did have some concerns that that this is a multiple flare of her acute diverticulitis and felt that she might need surgery. At this time the surgeons felt that the patient does not need surgery however if she wants to discuss this at a later date she will follow-up with Dr. Bryan. The patient has been on Zosyn while admitted and is being discharged home to finish out her course of antibiotic therapy with Augmentin. Diverticulitis, acute, Present on Admission -Acute Sigmoid Diverticulitis as noted on CT, with moderate LLQ abd pain. No fevers or leukocytosis on admission. Microperforation could not be ruled out. -General Surgery following -Discontinue IV Levaquin and IV Flagyl started on 01/21 -Continue IV Zosyn -Continue IV fluids -Pain control with IV Dilaudid 1 mg every 4 hours when necessary pain -Advance diet to soft Seizure Disorder, (currently stable) -Continue Lamictal 250 mg twice a day -Continue primidone 200 mg by mouth daily at bedtime, 150 mg in the morning, and 150 mg at 2:00 in the afternoon -Continue patient's Topamax at 25 mg by mouth daily at bedtime Anxiety and Depression, POA -Continue patient's home Effexor 37.5 mg by mouth daily -Ativan IV 1 mg every 4 hours when necessary anxiety or agitation -Continue patient's home dose of BuSpar 5 mg by mouth twice a day -Continue patient's home dose of Ativan 0.5 mg by mouth daily at bedtime when necessary insomnia Hypertension, Essential, POA (stable) -Continue patient's home medication of 10 mg of propanolol daily CODE STATUS: Full resuscitation Exam Vital Signs (Last) Date Time Temp Pulse Resp B/P Pulse Ox O2 Delivery O2 Flow Rate FiO2 01/23/17 09:19 36.7 92 17 126/75 97 Room Air Exam Physical Exam: GEN: Patient was awake, alert, responding appropriately to questions HEENT: Pupils equal round and reactive to light, extraocular eye muscles intact , Neck soft supple, trachea midline, nomocephalic/atraumatic CV: +S1/S2, regular rate and rhythm, no murmurs auscultated Respiratory: CTAB, no wheezes, rales, rhonchi GI: +bowel sounds x4, soft, compressible, nontender to palpation EXT: no clubbing, cyanosis, edema Neuro: Cranial nerves II-XII grossly intact Psych: mood and affect were appropriate Test 01/20/17 22:35 01/20/17 23:43 01/21/17 05:22 01/22/17 05:35 Magnesium Level 2.1mg/dL (1.6-2.6) Total Bilirubin 0.2mg/dL (0.0-1.2) Aspartate Amino Transf (AST/SGOT) 25U/L (0-50) Alanine Aminotransferase (ALT/SGPT) 17U/L (0-32) Alkaline Phosphatase 132U/L (25-165) Total Protein 7.8g/dL (6.4-8.4) Albumin 4.4g/dL (3.4-5.0) Lipase 24U/L (13-60) Hold [place] Top Tube Received (Received) Urine Color Straw (YELLOW) Urine Appearance Slightly cloudy Urine pH 8.5 (5.0-8.0) Urine Specific [place] 1.010 (1.003-1.035) Urine Protein Negativemg/dL (NEG,TRACE) Urine Glucose (UA) Negativemg/dL (NEGATIVE) Urine Ketones Negativemg/dL (NEGATIVE) Urine Occult Blood Negative (NEGATIVE) Urine Nitrite Negative (NEGATIVE) Urine Bilirubin Negative (NEGATIVE) Urine Urobilinogen Normalmg/dL (NORMAL) Urine Leukocyte Esterase Trace (NEGATIVE) Urine RBC 0-2/hpf (0-2) Urine WBC 0-5/hpf (0-5) Urine Epithelial Cells Occasional/hpf (NONE-MOD) Urine Crystals Amorphous phosphates Urine Bacteria Few/hpf (NONE-FEW) Urine Hyaline Casts None/lpf (NONE) Urine Granular Casts None seen (NONE SEEN) Urine Waxy Casts None seen (NONE SEEN) Urine Red Blood Cell Casts None seen (NONE SEEN) Urine White Blood Cell Casts None seen (NONE SEEN) Urine Mucus None seen (None Seen) Urine Trichomonas None seen (NONE SEEN) Urine Yeast None (NONE SEEN) Urinalysis Comment None Urine Culture Reflexed Indicated Neutrophils (%) (Auto) 66.2% (40-74) Lymphocytes (%) (Auto) 20.7% (14-46) Monocytes (%) (Auto) 11.8% (4-12) Eosinophils (%) (Auto) 1.1% (0-5) Basophils (%) (Auto) 0.1% (0-3) C-Reactive Protein 4.6mg/dL (0.0-0.5) White Blood Count 4.9th/mm3 (3.8-10.1) Red Blood Count 3.54mil/mm3 (3.90-5.20) Hemoglobin 11.4g/dL (12.0-15.6) Hematocrit 34.5% (35.0-46.0) Mean Corpuscular Volume 97.5fL (81-100) Mean Corpuscular Hemoglobin 32.2pg (27.0-35.0) Mean Corpuscular Hemoglobin Concent 33.0% (32.0-37.0) Red Cell Distribution Width 13.9% (12.3-15.4) Platelet Count 241bil/L (150-400) Sodium Level 139mEq/L (134-144) Potassium Level 4.1mEq/L (3.5-5.2) Chloride Level 104mEq/L (97-108) Carbon Dioxide Level 24mmol/L (18-29) Blood Urea Nitrogen 8mg/dL (8-27) Creatinine 0.57mg/dL (0.57-1.00) Estimat Glomerular Filtration Rate 149mL/min (>59) Glucose Level 89mg/dL (60-99) Calcium Level 8.5mg/dL (8.5-10.1) Discharge Medications Discharge Medications Alendronate Sodium (Fosamax) 70 Mg Tablet 70 MG PO QW (Reported) Amoxicillin/Clav K 875-125 mg (Augmentin 875-125 mg) 1 Each Tablet 1 TABLET PO BID Prescribed by: GLORIA BOGGS DO Buspirone (Buspirone) 5 Mg Tablet 5 MG PO BID (Reported) Calcium Carbonate/Vitamin D3 (Os-Ranulfo 500+D3 Caplet) 500 Mg-600 Tablet 1 EACH PO DAILY (Reported) Lamotrigine (Lamictal) 200 Mg Tablet 250 MG PO AM (Reported) Lamotrigine (Lamictal) 200 Mg Tablet 250 MG PO HS (Reported) Multivitamin (Multivitamins) 1 Each Capsule 1 EACH PO DAILY (Reported) Primidone (Primidone) 50 Mg Tablet 150 MG PO AM (Reported) Primidone (Primidone) 50 Mg Tablet 200 MG PO HS (Reported) Primidone (Primidone) 50 Mg Tablet 150 MG PO at 1400 (Reported) Simvastatin (Simvastatin) 40 Mg Tablet 40 MG PO HS (Reported) Topiramate (Topamax) 25 Mg Tablet 25 MG PO HS Prescribed by: GLORIA BOGGS DO Venlafaxine (Venlafaxine) 75 Mg Tablet 37.5 MG PO AM (Reported) As needed Lorazepam (Lorazepam) 2 Mg Tablet 0.5 MG PO PRN PRN PRN For Insomnia (Reported) Lorazepam (Lorazepam) 1 Mg Tablet 1 MG PO TID PRN PRN For Anxiety (Reported) Additional med instructions Please eat yogurt or take lactobacillus pills with her new medication Augmentin. This medication has a tendency to cause loose stools and eating yogurt or taking lactobacillus pills helps to decrease the side effect Followup Plan Discharge Diet: Other (gradually return to normal diet avoid nuts and seeds. Return to your diet for diverticulitis) Discharge Activity: No restrictions (gradually return to normal daily activities) Follow-up Provider: Rocio Gipson Follow-up with PCP in: 1 week (if an appointment has not been made please call to schedule an appointment) Provider: Nabeel Bryan MD Follow-up in: Other (at this time no follow-up appointment is needed with Dr. Bryan however if he would like to discuss any surgical options for diverticulitis please call his office and make an appointment. [phone] ) Time spent Greater than 35 minutes copies to: Rocio Gipson Precious L DO January 23, 2017 09:55 Gloria Boggs DO January 23, 2017 09:55
--- NOTE | 2017-01-23 12:43 | PCM.PNSURG ---
Subjective Date of Service: January 23, 2017 Visit Information: Reason for Visit Diverticulitis Surgery/Surgery Date Post-Op Day # Date of Admission: January 21, 2017 at 02:08 Hospital Day #3 Subjective: Bowel movement this morning. Eating solid foods with no nausea or vomiting. No complaints of pain. Ambulatory in the hallway without assistance. She states this is her fifth episode of treatment for diverticulitis. Postop General: No Complaints Gastrointestinal: Good Appetite, Tolerating Oral Feedings, No N/V, Normal Bowel Movement Pain Management: No or Minimal Pain Postop Activity: Ambulating Independently Objective Vital Sign- Last 8 Hours Date Time Temp Pulse Resp B/P Pulse Ox O2 Delivery O2 Flow Rate FiO2 01/23/17 09:19 36.7 92 17 126/75 97 Room Air 01/23/17 05:52 36.7 83 16 133/76 98 Room Air Intake and Output- Last 8 Hour 01/23/17 Cumulative From/Thru 07:00 01/20/17 22:16 - 01/23/17 06:38 Intake Total 536 ml 5558 ml Output Total 1750 ml 5220 ml Balance -1214 ml 338 ml Intake Oral 300 ml 2340 ml IV Total 236 ml 3218 ml Output Urine Total 1750 ml 5220 ml # Voids 2 # Bowel Movements 0 1 General: Alert, Cooperative, No Acute Distress Lungs: Clear to Auscultation Heart: Regular Rate/Rhythm Abdomen: Soft, Non-tender (no tenderness to deep palpation in the left lower quadrant), Non-distended, No masses Extremities: Thigh&Calf Soft/Nontender Neuro: Normal Speech Catheters: None Result Diagram: 01/22/17 0535 01/22/17 0535 Assessment & Plan Impression Primary diagnoses: Diverticulitis. HD #3 afebrile without leukocytosis, no left lower quadrant pain. Other chronic conditions: 1. Diverticulitis 4 episodes prior to this hospitalization. 2. Seizure disorder since teenage years 3. Hypertension 4. Dyslipidemia 5. Depression with anxiety. 6. History of asthma Problems: Plan Lengthy discussion was held with the patient and her concerning recommendations for elective colectomy. She is instructed to have a discussion with her primary care provider for referral to a surgeon. The patient is surgically stable for discharge today on oral antibiotics. VTE Prophylaxis: Sub-Q Heparin (Unfractionated), SCDs Resuscitation Status: CPR: Attempt Resuscitation copies to: Rocio Gipson; Josue Peterson MD, Fred H PA-C January 23, 2017 12:43
--- NOTE | 2017-01-23 13:15 | NUR ---
Social Work: Discharge D: EMR reviewed. Pt is on day 2 of hospitalization. Pt will be discharged today home with no needs. SW will continue to follow. A: Pt who is independent at baseline and will discharge home no needs when medically stable. P: Pt will discharge home with via POV. No anticipated discharge needs at this time. CICI Little
--- NOTE | 2017-01-23 14:30 | NUR ---
Discharge Pt DC'ing home with her . Discussion between nursing, pt and her about progressing her diet and her antibiotic; all of this was confirmed with Dr. Boggs. Pt is anxious about going home and reported some "upset stomach" after lunch; Maalox given and pt advised to take Ativan if anxiety continued at home. Pt has denied pain throughout today and tolerated her soft low fiber diet well.
--- NOTE | 2017-01-23 15:29 | NUR ---
spiritual care: follow up greeting/blessing as pt' discharged.
== END 2017-01-23 14:40 | disposition home or self-care (01) | DRG 392 ==
LOC: SED 20:56 → OBSVTOIN 01-21 02:08 → OSC 01-21 02:08
PROVIDERS: ADMIT Internal Medicine; ATTEND Internal Medicine
DX: K57.20 Diverticulitis of large intestine with perforation and abscess without bleeding (principal); I10 Essential (primary) hypertension; F41.9 Anxiety disorder, unspecified; F32.9 Major depressive disorder, single episode, unspecified; G40.909 Epilepsy, unspecified, not intractable, without status epilepticus; E78.5 Hyperlipidemia, unspecified

== ENCOUNTER 2017-04-12 18:28 | Inpatient (IN) | payer MEDICARE, OTHER ==
[~2017-04-12] VITALS: Ht 154.9 cm; Wt 62.6 kg
[~2017-04-12 18:28] MED LIST changes: +AMOX-366 PO; -ASCO-294 PO; -ASCO500C6 PO; +CALC1TAB23 PO; -CHOL10008 PO; -CIPR-231 PO; -KLO1T PO; -METR500T PO; -PROP10TA8 PO; +TOPI25TA26 PO
[2017-04-12 18:35] VITALS: BP 137/78; PULSE 108; RESP 18; O2SAT 99
[2017-04-12 19:27] LABS: BASOPHILS % (AUTO) 0.1 % (0-3); EOSINOPHILS % (AUTO) 0.3 % (0-5); MONOCYTES % (AUTO) 11.5 % (4-12); Mean Corpuscular Hemoglobin 32.1 pg (27.0-35.0); Mean Corpuscular Volume 94.6 fL (81-100); NEUTROPHILS % (AUTO) 77.1 % (40-74); Platelet Count 295 bil/L (150-400)
[2017-04-12 19:46] LABS: Magnesium 2.2 mg/dL (1.6-2.6)
--- NOTE | 2017-04-12 23:49 | ED.REPORT ---
HPI-Abd Pain F 40 and Over Date of Service Apr 12, 2017 ED Provider: Dr. Garcia Pt is a 76 year old female with a hx of diverticulitis, HTN and epilepsy presenting to the ED sent by her PCP for a fever of 101 and diagnosed diverticulitis symptoms. Associated symptoms include abdominal pain 4 and 5 days ago, now resolved, and diarrhea yesterday. She states that she was on a high fiber diet, then switched to liquid diet which resolved her abdominal discomfort. Denies nausea, vomiting, bloody stool, or any other symptoms at this time. She is currently on antibiotics for diverticulitis for the past few days but her symptoms have not improved. Nursing Notes Stated Complaint: DIVERTICULITIS WITH FEVER Chief Complaint: Female Abdominal Pain Nursing Notes Reviewed: Yes Allergies: Coded Allergies: peanut oil (Verified Allergy, Mild, 04/12/17) Egg White (Verified Allergy, Unknown, 04/12/17) Egg Yolk (Verified Allergy, Unknown, 04/12/17) [place] (Verified Allergy, Unknown, 04/12/17) peanut (Verified Allergy, Unknown, 04/12/17) Scheduled Alendronate Sodium (Fosamax) 70 Mg Tablet 70 MG PO QW Amoxicillin/Clav K 875-125 mg (Augmentin 875-125 mg) 1 Each Tablet 1 TABLET PO BID Buspirone (Buspirone) 5 Mg Tablet 5 MG PO BID Calcium Carbonate/Vitamin D3 (Os-Ranulfo 500+D3 Caplet) 500 Mg-600 Tablet 1 EACH PO DAILY Cholecalciferol (Vitamin D3) (Vitamin D3) 1,000 Unit Tab.chew 1,000 UNIT PO DAILYWD Lactobacillus Acidophilus (Probiotic) 1 Each Capsule 1 EACH PO DAILYWD Lamotrigine (Lamictal) 200 Mg Tablet 250 MG PO BID Multivitamin (Multivitamins) 1 Each Capsule 1 EACH PO DAILY Primidone (Primidone) 50 Mg Tablet 150 MG PO AM Primidone (Primidone) 50 Mg Tablet 200 MG PO HS Primidone (Primidone) 50 Mg Tablet 150 MG PO at 1400 Venlafaxine (Venlafaxine) 75 Mg Tablet 37.5 MG PO AM Scheduled PRN Lorazepam (Lorazepam) 0.5 Mg Tablet 0.5 MG PO HS PRN PRN For Insomnia General Time Seen by MD: 23:48 Chief Complaint Other (Fever of 101 F) Hx Obtained From: Patient Arrived By: Walk-in Sudden in Onset?: No Onset Occurred: 5 days ago Symptom Duration: Since onset Progression since Onset: Constant Location: : LLQ Quality: Painful Severity: Current: No pain currently Severity: Maximum: Moderate Recent Healthcare: No recent hospitalization, Recent doctor visit Similar Sx Previous: Yes Past Medical History Past Medical History Notes: Meds not reconciled: Pt has a paper list: Medical 200 mg twice a day Primidone 50 mg 2 in the morning for a bedtime Propranolol 10 mg in the morning Lorazepam 2 mg when necessary Simvastatin 40 mg by mouth daily Clonazepam 1 mg at dinnertime Venlafaxine 75 mg in the morning Buspirone 5 mg at dinnertime Alendronate 70 mg a week Multivitamins and probiotics Past Medical History 1. Diverticulitis 2. Seizure Disorder 3. Hypertension 4. Depression 5. Insomnia 6. Asthma Past Surgical History 1. Tonsillectomy 2. Ovarian Fibroid Removal 3. x2 4. Appendectomy 5. Tubal Ligation 6. Hysterectomy Smoking History Never Smoker Social History Alcohol Use: Denies alcohol use Drug Use: Denies drug use Other Social History: Ambulatory Status Independent Review of Systems Constitutional: Reports: Fever (101) GI: Reports: Abdominal pain, Diarrhea, Denies: Bloody/tarry stool, Nausea, Vomiting Complete sys rev & neg: except as marked. Physical Exam Vital Signs Vital Signs (First) Date Time Temp Pulse Resp B/P Pulse Ox O2 Delivery O2 Flow Rate FiO2 04/12/17 18:35 37.1 108 18 137/78 99 Room Air Initial VS: Reviewed, Vital signs abnormal Head / Eyes: Atraumatic, Normocephalic, PERRL ENT: Mucous membranes moist, Conjunctiva normal, No scleral icterus Neck: Supple, Non-tender, Full range of motion Extremities: Vascular intact, Neuro intact, No swelling, No tenderness Skin: Warm, Dry, No cyanosis Neurologic: Alert, Oriented, Nonfocal Psychiatric: Mood/affect normal, Behavior normal, Normal thought content General/Constitutional: Awake, Alert, No acute distress, Well appearing Respiratory / Chest: Breath sounds NL, Breath sounds = bilat, No respiratory distress, No rales, No rhonchi, No wheezing, No stridor Cardiovascular: Heart rate NL, Regular rhythm, Heart sounds NL, Peripheral circulation NL Abdomen: Atraumatic, Soft Tenderness/Guarding/Rebound: Positive: Tender LLQ... (Mild) Interpretation & Diagnostics Lab Results Interpretation Result Diagram: 04/13/17 0516 04/13/17 0516 Test 04/12/17 19:15 04/13/17 01:55 Prothrombin Time 11.1sec (8.1-12.5) Prothromb Time International Ratio 1.04ratio Magnesium Level 2.2mg/dL (1.6-2.6) Total Bilirubin 0.3mg/dL (0.0-1.2) Aspartate Amino Transf (AST/SGOT) 19U/L (0-50) Alanine Aminotransferase (ALT/SGPT) 12U/L (0-32) Alkaline Phosphatase 122U/L (25-165) Total Protein 8.3g/dL (6.4-8.4) Albumin 3.9g/dL (3.4-5.0) Lipase 17U/L (13-60) Urine Color Straw (YELLOW) Urine Appearance Hazy (CLEAR,HAZY) Urine pH 7.0 (5.0-8.0) Urine Specific [place] 1.033 (1.003-1.035) Urine Protein Negativemg/dL (NEG,TRACE) Urine Glucose (UA) Negativemg/dL (NEGATIVE) Urine Ketones 15mg/dL (NEGATIVE) Urine Occult Blood Trace (NEGATIVE) Urine Nitrite Negative (NEGATIVE) Urine Bilirubin Negative (NEGATIVE) Urine Urobilinogen Normalmg/dL (NORMAL) Urine Leukocyte Esterase Negative (NEGATIVE) Urine RBC 0-2/hpf (0-2) Urine WBC 0-5/hpf (0-5) Urine Epithelial Cells Occasional/hpf (NONE-MOD) Urine Crystals None seen (NONE SEEN) Urine Bacteria None/hpf (NONE-FEW) Urine Hyaline Casts None/lpf (NONE) Urine Granular Casts None seen (NONE SEEN) Urine Waxy Casts None seen (NONE SEEN) Urine Red Blood Cell Casts None seen (NONE SEEN) Urine White Blood Cell Casts None seen (NONE SEEN) Urine Mucus None seen (None Seen) Urine Trichomonas None seen (NONE SEEN) Urine Yeast None (NONE SEEN) Urinalysis Comment None Urine Culture Reflexed Not indicated Lab values outside NL range: no clinical significance. Lab Results Interpretation: WBC shift to the left CT Abd / Pelvis Interpretation CONCLUSION: Long segment sigmoid diverticulitis with moderate inflammatory changes. There is a 3.5 x 2 cm proximal perisigmoid abscess. No free peritoneal gas or pneumatosis intestinalis. This report was transmitted to the emergency room at 04/13/2017 - 12:33:51 AM PDT. Study type: Abdominal CT IV contrast Interpretation / Wet Read by: Interpret - Radiologist Re-Eval/Medical Decision Med Decision/Clinical Course 76-year-old female with a history of recurrent diverticulitis who is having persistent pain and fever despite outpatient treatment. She is found to have long segment of diverticulitis with a sigmoid diverticular abscess. She will be placed on Zosyn, admitted to the hospitalist service with surgical consultation. Re-Evaluation/Progress : Time of Eval: 01:02 Patient Status: Condition improved Re-Evaluation/Progress Note: Discussed CT results and consultation with Dr. Hitchcock. Discussed plan for admission. Pt understands and agrees. Consultation #1: Referral / Consult Name: Sanket Hitchcock MD Consulted With: Surgeon Requested Call at: 00:47 Guest Experience Specialist: Agrees with plan Note: Recommends admission with IV antibiotics and surgical consult tomorrow. Consultation #2: Referral / Consult Name: Aishwarya Hughes DO Consulted With: Hospitalist Call Returned at: 01:32 Guest Experience Specialist: Will see patient, Agrees with plan, Accepts admit Counseled Regarding: Diagnosis, Lab results, Need for admission Discharge & Departure Primary Impression: Diverticulitis Diverticulitis site: unspecified part of intestinal tract Diverticulitis bleeding: without bleeding Diverticulitis complication: with abscess Qualified Code: K57.80 - Diverticulitis of intestine, part unspecified, with perforation and abscess without bleeding Disposition: ADMITTED TO HOSPITAL Discharge Condition All VS Reviewed: Yes Condition: Improved Referrals: Josue Peterson MD (PCP) Janell Attestation Portions of this note were transcribed by Courtney Case. I, Dr. Garcia personally performed the history, physical exam and medical decision-making; I reviewed and confirmed the accuracy of the information in the transcribed note. Signed by: Janell Osborne, 04/13/2017 at 0131. copies to: Josue Peterson MD, Howard L MD Apr 12, 2017 23:48 COURTNEY CASE Apr 13, 2017 00:04
[2017-04-13] MEDS ORDERED: 0.9% Sodium Chloride 1,000 ML IV ONE (00:05)
[2017-04-13] MEDS ORDERED: Piperacillin-Tazo 3.375 Gm Inj 3.375 GM in Dextrose 5% Minibag Plus 50 ML IV ONE (01:35)
[2017-04-13] MEDS ORDERED: Polyethylene Glycol (PEG) 17 Gm Powder PO PRN (02:00)
[2017-04-13] MEDS ORDERED: Ondansetron 2 mg/mL 2 mL Inj IVPUSH PRN (02:00)
[2017-04-13] MEDS ORDERED: Alum-Mag Hydrox-Simeth 30 mL Suspension PO PRN (02:00)
[2017-04-13 02:40] VITALS: BP 126/72; PULSE 78; RESP 16; O2SAT 99
[2017-04-13 02:47] LABS: INR 1.04 ratio
--- NOTE | 2017-04-13 02:53 | PCM.HPMED ---
Subjective Date of Service Apr 13, 2017 Primary Provider: Admitting Physician: Primary Care Physician: Josue Peterson MD Attending Physician: Admit Status: From the Emergency Department Chief Complaint: abd pain with fever History of Present Illness: 76 year old female with a pmhx of recurrent diverticulitis, seizure disorder, and hypertension who presented to the ED with intermittent LLQ abdominal pain with fever x 5 days. Patient reports that she developed a crampy left lower quadrant abdominal pain on Saturday, which was mild at first. When the pain worsened, she saw her doctor on Saturday, who prescribed her Augmentin because her symptoms were similar to previous diverticulitis episodes. She reports she has been taking antibiotics as instructed, but abdominal pain has not improved and she also developed some fevers and chills on Saturday. She denies any associated nausea, vomiting, diarrhea, constipation, dysuria, headache, or dizziness. Her seizure disorder has been stable and well-controlled. Her last admit for diverticulitis was in January, which was treated with just fluids and antibiotics. In the ED, she was afebrile but mildly tachycardic. Her CBC did show 77.1% neutrophils for white count of 9.9 Her CMP was remarkable for a CRP of 22.[address] of her abdomen pelvis which showed Long segment sigmoid diverticulitis with moderate inflammatory changes with a perisigmoid abscess. General surgery was consulted and recommended antibiotics. They will evaluate her in the a.m. for possible abscess drainage Review of Systems: Comprehensive review of systems was conducted with the patient and found to be negative except as noted above in HPI. Allergies Coded Allergies: peanut oil (Verified Allergy, Mild, 04/12/17) Egg White (Verified Allergy, Unknown, 04/12/17) Egg Yolk (Verified Allergy, Unknown, 04/12/17) [place] (Verified Allergy, Unknown, 04/12/17) peanut (Verified Allergy, Unknown, 04/12/17) Home Medications Fosamax Vitamin C BuSpar Clonazepam 1 mg daily at bedtime Lamotrigine 200 mg twice a day Lorazepam when necessary anxiety Primidone Propranolol Simvastatin Venlafaxine PMH Diverticulosis, with about 8 episodes of Diverticulitis in 4 years Seizure disorder since teenage years Hypertension Dyslipidemia Depression with anxiety. Asthma earlier in life, but resolved in recent years. Surgical History 1. Tonsillectomy 2. Ovarian Fibroid Removal 3. x2 4. Appendectomy 5. Tubal Ligation 6. Hysterectomy Family History Denies any fmhx of colon cancer Social History Hx Alcohol Use: No Hx Substance Use: No Hx Tobacco Use: No Smoking Status: Never Smoker Living Arrangement: with Family Exam Vital Signs Vital Sign - Last Date Time Temp Pulse Resp B/P Pulse Ox O2 Delivery O2 Flow Rate FiO2 04/12/17 23:35 37.4 04/12/17 18:35 108 18 137/78 99 Room Air Intake and Output 04/12/17 04/12/17 04/13/17 Cumulative From/Thru 15:00 23:00 07:00 04/12/17 18:35 - 04/13/17 00:15 Intake Total 1000 ml 1000 ml Balance 1000 ml 1000 ml Intake IV Total 1000 ml 1000 ml Exam Gen: Well-developed elderly female who appears in no acute distress, alert and oriented 3 HEENT: PERRLA, EOMI, sclerae anicteric, oropharynx moist and pink Neck: Soft, trachea midline, no JVD noted CV: RRR, soft systolic murmur noted, peripheral pulses intact and equal Respiratory: CTAB, no wheezing or rhonchi noted, normal respiratory effort Abdomen: Soft, mildly distended, mildly tender to palpation of left lower quadrant, No guarding or rebound, no rash, NABS MSK: Muscle strength grossly intact, no edema or cyanosis noted, no swollen or tender joints Neuro: Grossly intact, no focal weakness, speech fluent, mild tremor of both hands, Skin: Warm, dry, intact, normal skin turgor Psychiatric: Appropriate mood and affect, linear thought process, cooperative and pleasant Lab and Diagnostics Result Diagram: 04/12/17191404/12/171914 X-Rays, CTs and MRIs CT Abd / Pelvis Interpretation CONCLUSION: Long segment sigmoid diverticulitis with moderate inflammatory changes. There is a 3.5 x 2 cm proximal perisigmoid abscess. No free peritoneal gas or pneumatosis intestinalis. This report was transmitted to the emergency room at 04/13/2017 - 12:33:51 AM PDT. Study type: Abdominal CT IV contrast Interpretation / Wet Read by: Interpret - Radiologist Assessment & Plan 76 year old female w/ h/o of recurrent diverticulitis, seizure disorder, and hypertension who presented to the ED with intermittent LLQ abdominal pain x 5 days with fever. Admitted for diverticulitis with abscess as noted on CT. Diverticulitis with Abscess, acute, Present on Admission As noted on CT imaging. Patient is hemodynamically stable and her pain is moderately controlled. Her CRP is fairly high, but there are no peritoneal signs. General Surgery consulted and will evaluate her in the AM IV Zosyn started in the ED on 04/13. No blood cultures were drawn before abx were started, will plan to draw them anyways IV NS at 100 mls/hr IV Dilaudid and IV Zofran for symptomatic management NPO after midnight Seizure Disorder, POA Stable, Continue patient's home medications Anxiety and Depression, POA Stable Continue patient's home medications when appropriate IV Ativan prn anxiety and insomnia Hypertension Essential, POA Stable Continue patient's home medications when appropriate CODE STATUS: Full resuscitation Patient is admitted under inpatient status with expected length of stay greater than 2 midnights due to severity of presenting symptoms, risk of adverse event, and complexity of treatment plan. Pain Evaluation: Adequate Pain Control VTE Prophylaxis: Sub-Q Heparin (Unfractionated) Resuscitation Status: CPR: Attempt Resuscitation Attending Statement The patient was seen and examined together with house staff on 04/13/2017 and I agree with the history, exam and plan as outlined in the note above. Joseph Rob DO Apr 13, 2017 02:39 Aishwarya Hughes DO Apr 13, 2017 04:21
[2017-04-13 03:24] VITALS: BP 154/83; PULSE 104; RESP 16; O2SAT 97
[2017-04-13 03:46] LABS: APPEARANCE,URINE HAZY (CLEAR,HAZY); COLOR,URINE STRAW (YELLOW); OCCULT BLOOD,URINE TRACE (NEGATIVE); UROBILINOGEN,URINE NORMAL (NORMAL)
[2017-04-13] MEDS: Lactated Ringer's 1,000 ML IV SCH ×3 (04:13→23:46)
[2017-04-13 05:29] LABS: BASOPHILS % (AUTO) 0 % (0-3); EOSINOPHILS % (AUTO) 0.7 % (0-5); MONOCYTES % (AUTO) 15.1 % (4-12); Mean Corpuscular Volume 94.6 fL (81-100); NEUTROPHILS % (AUTO) 69.8 % (40-74); Platelet Count 266 bil/L (150-400)
--- NOTE | 2017-04-13 08:00 | NUR ---
pt admitted to room 1018(late entry) last night at approx 0330,VSS, admit/med rec completed this am. Pt alert, oriented, ambulatory with SBA due to very unsteady gait at this time, denies nausea and pain at this time but states has no appetite. Has not eaten anything but clear liquids since 04/11
--- NOTE | 2017-04-13 08:50 | PCM.PNMED ---
Subjective Date of Service Apr 13, 2017 Subjective Patient seen and examined. Mild discomfort in the abdomen. Vitals stable. Exam Vital Signs Vital Sign - Last Date Time Temp Pulse Resp B/P Pulse Ox O2 Delivery O2 Flow Rate FiO2 04/13/17 03:24 37.1 104 16 154/83 97 Room Air Intake and Output 04/12/17 04/12/17 04/13/17 Cumulative From/Thru 15:00 23:00 07:00 04/12/17 18:35 - 04/13/17 06:02 Intake Total 1100 ml 1100 ml Output Total 0 ml 0 ml Balance 1100 ml 1100 ml Intake Oral 100 ml 100 ml IV Total 1000 ml 1000 ml Output Urine Total 0 ml 0 ml # Bowel Movements 0 0 Exam Gen: Well-developed elderly female who appears in no acute distress, alert and oriented 3 CV: RRR, soft systolic murmur noted, peripheral pulses intact and equal Respiratory: CTAB, no wheezing or rhonchi noted, normal respiratory effort Abdomen: Soft, mildly distended, mildly tender to palpation of left lower quadrant, No guarding or rebound, no rash, NABS Skin: Warm, dry, intact, normal skin turgor Psychiatric: Appropriate mood and affect, linear thought process, cooperative and pleasant Lab and Diagnostics Result Diagram: 04/13/17 0516 04/13/17 0516 X-Rays, CTs and MRIs CT Abd / Pelvis Interpretation CONCLUSION: Long segment sigmoid diverticulitis with moderate inflammatory changes. There is a 3.5 x 2 cm proximal perisigmoid abscess. No free peritoneal gas or pneumatosis intestinalis. This report was transmitted to the emergency room at 04/13/2017 - 12:33:51 AM PDT. Study type: Abdominal CT IV contrast Interpretation / Wet Read by: Interpret - Radiologist Assessment & Plan 76 year old female w/ h/o of recurrent diverticulitis, seizure disorder, and hypertension who presented to the ED with intermittent LLQ abdominal pain x 5 days with fever. Admitted for diverticulitis with abscess as noted on CT. > Diverticulitis with Abscess, acute, Present on Admission, active As noted on CT imaging. Patient is hemodynamically stable and her pain is moderately controlled. Her CRP is fairly high, but there are no peritoneal signs. General Surgery consulted and will evaluate her in the AM IV Zosyn started in the ED on 04/13. No blood cultures were drawn before abx were started, will plan to draw them anyways IV NS at 100 mls/hr IV Dilaudid and IV Zofran for symptomatic management NPO after midnight >Seizure Disorder, POA Stable, Continue patient's home medications >Anxiety and Depression, POA Stable Continue patient's home medications when appropriate IV Ativan prn anxiety and insomnia >Hypertension Essential, POA Stable Continue patient's home medications when appropriate CODE STATUS: Full resuscitation Patient is admitted under inpatient status with expected length of stay greater than 2 midnights due to severity of presenting symptoms, risk of adverse event, and complexity of treatment plan. VTE Prophylaxis: Sub-Q Heparin (Unfractionated) VTE Mechanical Devices: Intermittant Pneumatic CD Resuscitation Status: CPR: Attempt Resuscitation Time spent 35 mins Luis Tipton MD Apr 13, 2017 08:50
[2017-04-13 08:51] VITALS: BP 109/66; PULSE 80; RESP 15; O2SAT 98
[2017-04-13] MEDS ORDERED: CHOL10008 PO (09:23)
[2017-04-13] MEDS ORDERED: LACT1CAP65 PO (09:23)
[2017-04-13] MEDS ORDERED: LORA0.5T PO (09:23)
[2017-04-13] MEDS ORDERED: VENLAFAXINE 37.5 MG PO SCH (10:10)
[2017-04-13] MEDS: BusPIRone 15 mg Dividose Tablet PO SCH ×2 (10:10→20:42)
[2017-04-13] MEDS ORDERED: lamoTRIgine 100 mg Tablet PO SCH (10:10)
--- NOTE | 2017-04-13 10:11 | DRSVH ---
PROCEDURE: CT ABDOMEN AND PELVIS WITH CONTRAST ([id number]) INDICATIONS: LLQ abd pain, not improving TECHNIQUE: After the administration of intravenous contrast, 5 mm thick sections acquired from the diaphragm to the symphysis. 5 mm coronal and sagittal reformats were acquired. For radiation dose reduction, the following was used: automated exposure control, adjustment of mA and/or kV according to patient siz e. COMPARISON: [facility], CT, ABD/PELVIS W/CON (PNL), 01/02/2015, 1:35. [facility], CT, CT ABD PELVIS W CON, 01/21/2017, 0:55. FINDINGS: Image quality: Excellent. ABDOMEN: Lung bases: Mild bibasilar atelectasis. Heart size is normal. Small hiatal hernia. Solid organs: Liver and spleen are normal in size and enhancement. Gallbladder is normal. Biliary system is non dilated. Pancreas enhances normally. No adrenal nodules. There is a 3 mm nonobstruct britt left renal calcification. Kidneys demonstrate normal size and enhancement, without hydronephrosis . Peritoneum and bowel: There are scattered colonic diverticula. There is short segmental thickening a nd associated inflammatory stranding in the proximal sigmoid colon consistent with acute diverticulit is. There is a 1.7 x 3.5 cm fluid collection adjacent to the proximal sigmoid colon, suspicious for a small diverticular abscess. Trace amount of free fluid in the left lower quadrant. No free air. Nodes and vessels: No retroperitoneal or mesenteric adenopathy by size criteria. Aorta and inferior vena cava are normal in size. Miscellaneous: No ventral hernias. PELVIS: Genitourinary: Bladder wall thickness is normal. Miscellaneous: No inguinal hernias or adenopathy. Bones: No suspicious bony lesions. No vertebral body compression fractures. IMPRESSION: 1. Acute sigmoid diverticulitis. Suspect a small diverticular abscess. 2. A 4 mm left renal calcification suspicious for a small nonobstructive stone. No significant discrepancy with the [facility]ology preliminary report. Dictated by: Dmitriy Watkins M.D. on 04/13/2017 at 10:05 Transcribed by: RAMON on 04/13/2017 at 10:11 Approved by: Dmitriy Watkins M.D. on 04/13/2017 at 11:25
[2017-04-13] MEDS: Heparin 5,000 Unit/mL Inj SUBQ SCH ×3 (10:12→23:43)
[2017-04-13] MEDS: lamoTRIgine 100 mg Tablet PO SCH ×2 (10:15→20:42)
[2017-04-13] MEDS: Sodium Chloride LOK Flush 10 mL Syringe IVFLUSH SCH ×2 (10:22→17:39)
[2017-04-13] MEDS: Piperacillin-Tazo 3.375 Gm Inj 3.375 GM in Dextrose 5% Minibag Plus 50 ML IV SCH ×3 (10:22→23:43)
[2017-04-13 13:41] VITALS: BP 120/69; PULSE 86; RESP 16; O2SAT 97
--- NOTE | 2017-04-13 15:38 | CONS ---
[address] [address] CONSULTATION REPORT PATIENT: DANNY HERRERA : 1940 MR#: [id number] ADMIT: 04/13/2017 JOB ID: [id number] DATE OF SERVICE: 04/13/2017 REQUESTING PHYSICIAN: Aishwarya Hughes DO HISTORY OF PRESENT ILLNESS: The patient is a 76-year-old female who was admitted yesterday through the emergency department. She contacted her primary care physician, Dr. Josue Peterson, because of recurrent left lower quadrant pain associated with a fever. In the emergency department she was noted to have left lower quadrant tenderness and then a CT scan of the abdomen was obtained showing acute sigmoid diverticulitis with a probable small diverticular abscess measuring 1.7 x 3.5 cm. There is no evidence of free perforation. By her report she has had eight previous episodes of diverticulitis. She eats a high-fiber diet as instructed by Dr. Peterson. She had a colonoscopy by Dr. Hightower on November 01, 2015 which showed diverticulosis throughout the sigmoid colon and then multiple small polyps demonstrating tubular adenoma. She had a CT scan in 2011 for right lower quadrant pain which demonstrated moderate sigmoid diverticulitis without evidence of an abscess. She has had a previous appendectomy and section. She is a lifelong nonsmoker. She is a and has a very supportive , a retired mechanical maintenance foreman, whose first name is . PAST MEDICAL HISTORY: Illnesses: Repetitive episodes of diverticulitis with one confirmed previous episode by CT scan, seizure disorder, hypertension, dyslipidemia, depression, and anxiety. Operations: 1. section x2. 2. Appendectomy. 3. Tubal ligation. 4. Hysterectomy. SOCIAL HISTORY: . Her is Ed. REVIEW OF SYSTEMS: Currently denies nausea, vomiting, hematemesis, bloody diarrhea or diarrhea, any urinary symptoms including dysuria, hematuria, frequency, cloudy urine, or pneumaturia. She has no neurologic, respiratory, or cardiac symptoms. Denies any musculoskeletal symptoms, current rashes, or constitutional symptoms such as weight loss and chronic fevers, pruritus. PHYSICAL EXAMINATION: Pleasant, alert, in no distress. Appearing stated age. BMI 26. Temperature 36.5, brachial blood pressure 120/69, pulse 86, respiratory rate 16, O2 sat room air 97%. HEENT: PERRLA. EOMI. No scleral icterus. No exophthalmos. Neck: No visible masses no thyromegaly. Trachea midline. Lymph nodes: No cervical, scalene, or inguinal adenopathy. Lungs: Clear. Cardiac: Regular rhythm. No murmurs or gallops appreciated. Abdomen: Pfannenstiel incision. She has mild left lower quadrant tenderness. No other abdominal tenderness. No distention. No peritoneal signs. Extremities: No edema. Skin: No anterior abdominal wall rashes. Neurologic: Appropriate affect. No obvious cranial nerve deficits. No lateralizing signs. Gait not tested. LABORATORY RESULTS: White blood cell count today is 8.9, yesterday was 9.9. Hematocrit is 35.2, platelet count 266,000. INR 1.04. Electrolytes are normal. Creatinine 0.6, glucose 95. C-reactive protein 23.3. IMPRESSION: Recurrent diverticulitis with probable pericolonic abscess. I have reviewed her CT scans. If this is in fact a pericolonic abscess, it is small enough that it should respond to antibiotics. I do not think she needs an operative percutaneous drainage. I agree with continuing Zosyn. I reassured her that she was doing everything possible to prevent recurrence. By her count she has had eight episodes. At least one previous episode was confirmed by CT scan. I briefly mentioned the possibility of an elective sigmoid colectomy, but that would not be done now unless absolutely necessary. Much better that this episode resolves and then to consider eventually an elective sigmoid colectomy. I did not go into details regarding the operation. She and her concur with this plan. Time spent with patient and , and in coordination of care: 1 hour.
--- NOTE | 2017-04-13 16:28 | NUR ---
Social Work- Multidisciplinary Rounds Pt discussed in rounds. No social work needs identified in rounds. SW unable to see pt today due to high census. SW will continue to follow. CICI Venegas
[2017-04-13 19:40] VITALS: BP 131/69; PULSE 69; RESP 16; O2SAT 98
[2017-04-13] MEDS ORDERED: BusPIRone 15 mg Dividose Tablet PO SCH (20:30)
[2017-04-14] MEDS: Sodium Chloride LOK Flush 10 mL Syringe IVFLUSH SCH ×4 (01:59→23:33)
--- NOTE | 2017-04-14 04:12 | NUR ---
Pain/diet Pt c/o pain 4/10 tonight in abd; medicated with 650mg of Tylenol po and pain went to a 2/10. Pt tolerated jello and lemon eyak soda without nausea. Offered to advance diet however pt stated that she wanted to wait until morning before she possibly tried to do that. Voiding without issue. Pt dozed in and out tonight while watching a movie. Hourly rounding conts.
[2017-04-14 06:47] VITALS: BP 123/77; PULSE 88; RESP 16; O2SAT 96
[2017-04-14 07:48] LABS: BASOPHILS % (AUTO) 0.1 % (0-3); EOSINOPHILS % (AUTO) 1.2 % (0-5); Mean Corpuscular Hemoglobin 31.7 pg (27.0-35.0); Mean Corpuscular Volume 95.2 fL (81-100); NEUTROPHILS % (AUTO) 67.3 % (40-74); Platelet Count 295 bil/L (150-400)
--- NOTE | 2017-04-14 08:11 | PCM.PNMED ---
Subjective Date of Service Apr 14, 2017 Subjective Patient seen and examined today. She says she feels the pain every now and then , and she is not sure if its gas. Vitals stable. Exam Vital Signs Vital Sign - Last Date Time Temp Pulse Resp B/P Pulse Ox O2 Delivery O2 Flow Rate FiO2 04/14/17 06:47 36.9 88 16 123/77 96 Room Air Intake and Output 04/13/17 04/13/17 04/14/17 Cumulative From/Thru 15:00 23:00 07:00 04/12/17 18:35 - 04/14/17 06:47 Intake Total 200 ml 1576 ml 2876 ml Output Total 250 ml 1000 ml 1250 ml Balance -50 ml 576 ml 1626 ml Intake Oral 200 ml 400 ml 700 ml IV Total 1176 ml 2176 ml Output Urine Total 250 ml 1000 ml 1250 ml # Bowel Movements 0 0 0 Exam Gen: Well-developed elderly female who appears in no acute distress, alert and oriented 3 CV: RRR, soft systolic murmur noted, peripheral pulses intact and equal Respiratory: CTAB, no wheezing or rhonchi noted, normal respiratory effort Abdomen: Soft, mildly distended, mildly tender to palpation of left lower quadrant, No guarding or rebound, no rash, NABS Skin: Warm, dry, intact, normal skin turgor Psychiatric: Appropriate mood and affect, linear thought process, cooperative and pleasant Lab and Diagnostics Result Diagram: 04/14/17 0717 04/13/17 0516 X-Rays, CTs and MRIs CT Abd / Pelvis Interpretation CONCLUSION: Long segment sigmoid diverticulitis with moderate inflammatory changes. There is a 3.5 x 2 cm proximal perisigmoid abscess. No free peritoneal gas or pneumatosis intestinalis. This report was transmitted to the emergency room at 04/13/2017 - 12:33:51 AM PDT. Study type: Abdominal CT IV contrast Interpretation / Wet Read by: Interpret - Radiologist Assessment & Plan 76 year old female w/ h/o of recurrent diverticulitis, seizure disorder, and hypertension who presented to the ED with intermittent LLQ abdominal pain x 5 days with fever. Admitted for diverticulitis with abscess as noted on CT. > Diverticulitis with Abscess, acute, Present on Admission, active As noted on CT imaging. Patient is hemodynamically stable and her pain is moderately controlled. Her CRP is fairly high, but there are no peritoneal signs. General Surgery consulted, recs: conservative management with iv abx and monitoring her blood levels continue zosyn IV Dilaudid and IV Zofran for symptomatic management tolerating oral liquids >Seizure Disorder, POA Stable, Continue patient's home medications >Anxiety and Depression, POA Stable Continue patient's home medications when appropriate IV Ativan prn anxiety and insomnia >Hypertension Essential, POA Stable Continue patient's home medications when appropriate CODE STATUS: Full resuscitation Patient is admitted under inpatient status with expected length of stay greater than 2 midnights due to severity of presenting symptoms, risk of adverse event, and complexity of treatment plan. VTE Prophylaxis: Sub-Q Heparin (Unfractionated) VTE Mechanical Devices: Intermittant Pneumatic CD Resuscitation Status: CPR: Attempt Resuscitation Time spent 35 mins Luis Tipton MD Apr 14, 2017 08:11
[2017-04-14] MEDS ORDERED: Simethicone 40 mg/0.6 mL 30 mL Oral Solution PO PRN (08:15)
[2017-04-14] MEDS: Piperacillin-Tazo 3.375 Gm Inj 3.375 GM in Dextrose 5% Minibag Plus 50 ML IV SCH ×3 (09:27→23:32)
[2017-04-14] MEDS: lamoTRIgine 100 mg Tablet PO SCH ×2 (09:30→21:33)
[2017-04-14] MEDS: BusPIRone 15 mg Dividose Tablet PO SCH ×2 (09:35→21:35)
[2017-04-14] MEDS: Heparin 5,000 Unit/mL Inj SUBQ SCH ×3 (09:35→23:52)
[2017-04-14 12:21] VITALS: BP 129/81; PULSE 77; RESP 17; O2SAT 97
--- NOTE | 2017-04-14 12:52 | PROG NOTE ---
[address] [address] PROGRESS NOTE PATIENT: DANNY HERRERA : 1940 MR#: [id number] ADMIT: 04/13/2017 JOB ID: [id number] DATE: 04/14/2017 SUBJECTIVE: Follow up general surgical consultation. She continues to feel well, though has not had a bowel movement. She is passing some gas from below. OBJECTIVE: Her abdominal exam is notable for extremely mild left lower quadrant tenderness to deep palpation. LABORATORY: White count remains normal. IMPRESSION AND PLAN: Doing well with anticipated improvement on IV antibiotics. Recommend continuing IV antibiotics. Dr. Moscoso will see her again tomorrow, and then likely arrange for outpatient followup.
--- NOTE | 2017-04-14 14:41 | NUR ---
appetite pt taking clear liquids, but has not been able to take anything more at this point, even the clear liquid diet has been making her feel a little 'queezy'. passing flatus. ambulatory in room with staff or for SBA. She has a slightly unsteady gait and moderate arm/hand tremors, this is her normal.
--- NOTE | 2017-04-14 16:10 | NUR ---
Social Work- Multidisciplinary Rounds Pt discussed in rounds. Pt is likely to discharge home. SW unable to see pt today due to high census. SW will continue to follow. CICI Venegas
[2017-04-14 21:26] VITALS: BP 114/70; PULSE 84; RESP 16; O2SAT 98
[2017-04-15 05:45] VITALS: BP 151/69; PULSE 83; RESP 16; O2SAT 94
--- NOTE | 2017-04-15 05:52 | NUR ---
GI/ACTIVITY; no c/o nausea or vomiting. Up to bathroom with standby assist- tolerated well. in room with pt.
[2017-04-15] MEDS: Piperacillin-Tazo 3.375 Gm Inj 3.375 GM in Dextrose 5% Minibag Plus 50 ML IV SCH ×2 (08:28→17:29)
[2017-04-15] MEDS: BusPIRone 15 mg Dividose Tablet PO SCH ×2 (08:29→20:38)
[2017-04-15] MEDS: Sodium Chloride LOK Flush 10 mL Syringe IVFLUSH SCH ×2 (08:30→17:29)
[2017-04-15] MEDS: lamoTRIgine 100 mg Tablet PO SCH ×2 (08:30→20:38)
[2017-04-15] MEDS: Heparin 5,000 Unit/mL Inj SUBQ SCH ×2 (08:31→17:29)
--- NOTE | 2017-04-15 09:07 | PCM.PNMED ---
Subjective Date of Service Apr 15, 2017 Subjective Patient seen and examined. No pain, tolerating liquid diet. Vitals noted. Exam Vital Signs Vital Sign - Last Date Time Temp Pulse Resp B/P Pulse Ox O2 Delivery O2 Flow Rate FiO2 04/15/17 05:45 36.8 83 16 151/69 94 Room Air Intake and Output 04/14/17 04/14/17 04/15/17 Cumulative From/Thru 15:00 23:00 07:00 04/12/17 18:35 - 04/15/17 05:45 Intake Total 1500 ml 750 ml 5126 ml Output Total 2000 ml 1050 ml 4300 ml Balance -500 ml -300 ml 826 ml Intake Oral 1500 ml 600 ml 2800 ml IV Total 150 ml 2326 ml Output Urine Total 2000 ml 1050 ml 4300 ml # Bowel Movements 0 0 Exam Gen: Well-developed elderly female who appears in no acute distress, alert and oriented 3 CV: RRR, soft systolic murmur noted, peripheral pulses intact and equal Respiratory: CTAB, no wheezing or rhonchi noted, normal respiratory effort Abdomen: Soft, bs +, non tender, No guarding or rebound, no rash, NABS Skin: Warm, dry, intact, normal skin turgor Psychiatric: Appropriate mood and affect, linear thought process, cooperative and pleasant Lab and Diagnostics Result Diagram: 04/14/1771604/14/17716 X-Rays, CTs and MRIs CT Abd / Pelvis Interpretation CONCLUSION: Long segment sigmoid diverticulitis with moderate inflammatory changes. There is a 3.5 x 2 cm proximal perisigmoid abscess. No free peritoneal gas or pneumatosis intestinalis. This report was transmitted to the emergency room at 04/13/2017 - 12:33:51 AM PDT. Study type: Abdominal CT IV contrast Interpretation / Wet Read by: Interpret - Radiologist Assessment & Plan 76 year old female w/ h/o of recurrent diverticulitis, seizure disorder, and hypertension who presented to the ED with intermittent LLQ abdominal pain x 5 days with fever. Admitted for diverticulitis with abscess as noted on CT. > Diverticulitis with Abscess, acute, Present on Admission, active As noted on CT imaging. Patient is hemodynamically stable and her pain is moderately controlled. Her CRP is fairly high, but there are no peritoneal signs. General Surgery consulted, recs: conservative management with iv abx and monitoring her blood levels continue zosyn IV Dilaudid and IV Zofran for symptomatic management tolerating oral liquids , advance as tolerated >Seizure Disorder, POA Stable, Continue patient's home medications >Anxiety and Depression, POA Stable Continue patient's home medications when appropriate IV Ativan prn anxiety and insomnia >Hypertension Essential, POA Stable Continue patient's home medications when appropriate CODE STATUS: Full resuscitation Patient is admitted under inpatient status with expected length of stay greater than 2 midnights due to severity of presenting symptoms, risk of adverse event, and complexity of treatment plan. VTE Prophylaxis: Sub-Q Heparin (Unfractionated) VTE Mechanical Devices: Intermittant Pneumatic CD Resuscitation Status: CPR: Attempt Resuscitation Time spent 35 mins Luis Tipton MD Apr 15, 2017 09:07
--- NOTE | 2017-04-15 10:35 | PCM.PNSURG ---
Subjective Date of Service: Apr 15, 2017 Visit Information: Reason for Visit Diverticulitis, Sigmoid Abscess Surgery/Surgery Date Post-Op Day # Date of Admission: Apr 13, 2017 at 03:04 Hospital Day # Subjective: No acute overnight events Patient reports she is tolerating a clear liquid diet without nausea, vomiting, or worsened abdominal pain LLQ is sore, but she denies benson pain and says overall she feels better than yesterday Voiding, passing flatus, but now BM yet Denies subjective fevers or chills Objective Vital Sign- Last 8 Hours Date Time Temp Pulse Resp B/P Pulse Ox O2 Delivery O2 Flow Rate FiO2 04/15/17 05:45 36.8 83 16 151/69 94 Room Air Intake and Output- Last 8 Hour 04/15/17 Cumulative From/Thru 07:00 04/12/17 18:35 - 04/15/17 05:45 Intake Total 750 ml 5126 ml Output Total 1050 ml 4300 ml Balance -300 ml 826 ml Intake Oral 600 ml 2800 ml IV Total 150 ml 2326 ml Output Urine Total 1050 ml 4300 ml # Bowel Movements 0 0 General: Alert, Oriented X3, Cooperative, No Acute Distress Neck: Supple Lungs: Normal Air Movement Heart: Exam Unremarkable Abdomen: Other (Mildly tender in LLQ. Otherwise soft, nontender, and nondistended. ) Neuro: Grossly Neurologically Intact Result Diagram: 04/14/1771604/14/17716 Assessment & Plan Impression 76F with recurrent sigmoid diverticulitis with associated lindy-diverticular abscess. Symptomatically improving on Zosyn with normal WBC. Problems: Plan Continue IV antibiosis while in house Ok to advance diet as tolerated Consider gentle bowel regimen No need for urgent surgery, she can follow up in the outpatient setting to discuss a sigmoid colectomy Abscess does not require drainage given her improvement on antibiotics Will continue to follow, appreciate rest of care from primary medical team Please do not hesitate to call with any questions or concerns. VTE Prophylaxis: Sub-Q Heparin (Unfractionated) Resuscitation Status: CPR: Attempt Resuscitation Gilberto Bradshaw MD Apr 15, 2017 10:35
[2017-04-15 11:35] VITALS: BP 124/74; PULSE 82; RESP 17; O2SAT 95
--- NOTE | 2017-04-15 19:27 | NUR ---
Activity Patient up independent in room and ambulated in maher x3 with once SL. Denied pain and nausea this shift. Repositions self for comfort. Call light and tray table within reach. Will continue to monitor patient hourly.
[2017-04-15 20:10] VITALS: BP 117/73; PULSE 67; RESP 16; O2SAT 96
[2017-04-16] MEDS: Piperacillin-Tazo 3.375 Gm Inj 3.375 GM in Dextrose 5% Minibag Plus 50 ML IV SCH ×2 (00:26→08:26)
[2017-04-16] MEDS: Sodium Chloride LOK Flush 10 mL Syringe IVFLUSH SCH ×2 (00:27→08:30)
[2017-04-16] MEDS: Heparin 5,000 Unit/mL Inj SUBQ SCH ×2 (00:27→08:30)
[2017-04-16 05:34] LABS: Mean Corpuscular Hemoglobin 31.7 pg (27.0-35.0); Mean Corpuscular Volume 96.5 fL (81-100)
[2017-04-16 05:35] VITALS: BP 106/56; PULSE 81; RESP 16; O2SAT 96
--- NOTE | 2017-04-16 05:40 | NUR ---
Activity Pt reporting minimal side ache to LLQ that occurred after having dinner, but then subsided and denied pain afterwards. Pt also denies nausea and is on a soft diet. Pt requested Ativan to help her sleep at bedtime. in room and helping with care.
[2017-04-16] MEDS: BusPIRone 15 mg Dividose Tablet PO SCH (08:26)
[2017-04-16] MEDS: lamoTRIgine 100 mg Tablet PO SCH (08:27)
--- NOTE | 2017-04-16 12:08 | NUR ---
Social Work- Initial Assessment/ Readiness for Discharge/ Multidisciplinary Rounds Data: See Initial Assessment and Advance Directive Intervention for additional information. Pt discussed in rounds. Pt may be ready for discharge today. Discharge orders are active but MD is going to see pt. MD did not indicate need for HH services in rounds. Then [facility] received HH RN PT 3x weekly order from . SW spoke with MD who may cancel order, SW awaiting return call. Chantal is a 76 year old admitted 04/13/17 for diverticulitis, sigmoid abscess per H&P. Pt's insurance is [employer]. Pt's PCP is Josue Peterson MD. Pt's readmit risk score is 3. SW met with pt at bedside regarding discharge plan, SW role explained. Pt alert and oriented x3. Pt's capacity for self-care assessed. Pt resides in [place] in a home with her and adult son. Pt is independent with ADLs and self-care. Pt uses no DME at baseline but has a cane available for use. Pt drives. Pt's and son are both independent and able to assist at home if necessary. Pt has history with [facility] RN PT services. Pt has no history with SNF services. Pt has no DPOA on file and SW requested that pt bring in copy of DPOA. Pt reports that her son Ethan is DPOA. Pt is agreeable to discharge today and is anxious to return home. [facility] does not anticipate any discharge needs but will follow up with MD regarding HH order. [facility] provided Discharge planning Checklist and requested that pt contact [facility] if needs identified. SW provided phone number and plan on whiteboard. Pt agreeable. [facility] will continue to follow. Assessment: Pt who is independent at baseline. Plan: SW awaiting MD confirmation regarding HH order. Pt to discharge home with to transport via POV. No discharge needs identified, [facility] will continue to follow. CICI Venegas Addendum: 04/16/17 at 1213 by NATALY JUAREZ SS Amended: Links added. Addendum: 04/16/17 at 1219 by NATALY NICHOLE informed [facility] that pt does not need HH services at discharge. [facility] requested that cancel the order. CICI Venegas
[2017-04-16] MEDS ORDERED: SULF1TAB35 PO (12:17)
[2017-04-16] MEDS ORDERED: METR500T PO (12:24)
--- NOTE | 2017-04-16 12:27 | PCM.DIMED ---
Discharge Instructions Date of Service Apr 16, 2017 Dates of Hospitalization Apr 13, 2017 at 03:04 Discharge Diagnosis Discharge Diagnosis Complicated Diverticulitis, Hypertension, Seizures d/o, Anxiety/depression Medication Instructions Additional med instructions Please take antibiotics as prescribed. May take probiotics, use the fiber content sheet as guideline to eat low fiber diet for 1-2 weeks, slowly increase fiber thereafter. Diet Discharge Diet: Other (as above) Activity Discharge Activity: No restrictions Call your provider Call your provider for: Fever or Chills, Shortness of breath, Bleeding, Chest pain, Vomitting, Excessive diarrhea, Weakness (unilateral), Other Patient Instructions Follow-up plan Please follow up with general surgery Dr. Krishnan and Dr. Chavez in 2 weeks F/U with PCP in one week. Sania Hitchcock DO Apr 16, 2017 12:27
--- NOTE | 2017-04-16 12:29 | PCM.DC.MED ---
Discharge Summary Date of Service Apr 16, 2017 Dates of Hospitalization Date of Hospital Admission Apr 13, 2017 at 03:04 Date of Discharge: Apr 16, 2017 Providers: Admitting Physician: Aishwarya Hughes DO Primary Care Physician: Josue Peterson MD Attending Physician: Sania Mann DO Diagnosis at Time of Discharge Diagnosis at Time of Discharge Complicated Diverticulitis, Hypertension, Seizures d/o, Anxiety/depression Consultations General Surgery Procedures XRay, CTs & MRIs CT Abd / Pelvis Interpretation CONCLUSION: Long segment sigmoid diverticulitis with moderate inflammatory changes. There is a 3.5 x 2 cm proximal perisigmoid abscess. No free peritoneal gas or pneumatosis intestinalis. This report was transmitted to the emergency room at 04/13/2017 - 12:33:51 AM PDT. Study type: Abdominal CT IV contrast Interpretation / Wet Read by: Interpret - Radiologist Brief History 76 year old female with a pmhx of recurrent diverticulitis, seizure disorder, and hypertension who presented to the ED with intermittent LLQ abdominal pain with fever x 5 days. Patient reports that she developed a crampy left lower quadrant abdominal pain on Saturday, which was mild at first. When the pain worsened, she saw her doctor on Saturday, who prescribed her Augmentin because her symptoms were similar to previous diverticulitis episodes. She reports she has been taking antibiotics as instructed, but abdominal pain has not improved and she also developed some fevers and chills on Saturday. She denies any associated nausea, vomiting, diarrhea, constipation, dysuria, headache, or dizziness. Her seizure disorder has been stable and well-controlled. Her last admit for diverticulitis was in January, which was treated with just fluids and antibiotics. In the ED, she was afebrile but mildly tachycardic. Her CBC did show 77.1% neutrophils for white count of 9.9 Her CMP was remarkable for a CRP of 22.[address] of her abdomen pelvis which showed Long segment sigmoid diverticulitis with moderate inflammatory changes with a perisigmoid abscess. General surgery was consulted and recommended antibiotics. They will evaluate her in the a.m. for possible abscess drainage Hospital Course 76 year old female w/ h/o of recurrent diverticulitis, seizure disorder, and hypertension who presented to the ED with intermittent LLQ abdominal pain x 5 days with fever. Admitted for diverticulitis with abscess as noted on CT. > Diverticulitis with Abscess, acute, Present on Admission, active As noted on CT imaging. Patient is hemodynamically stable and her pain is moderately controlled. Her CRP is fairly high, but there are no peritoneal signs. General Surgery consulted, recs: conservative management with iv abx and monitoring her blood levels zosyn IV abx for 4-5 days was given IV Dilaudid and IV Zofran for symptomatic management tolerating oral liquids , diet was advanced as tolerated Patient has no abdominal pain, produced BM, flatus. Has no nausea vomiting on the day of discharge Recommended low fiber bland diet for up to 2 weeks followed by high fiber diet, information on fiber content in various foods provided to patient cora Powers for antibiotics for 5 days (she failed on augmentin o/p therapy , she did not tolerate cipro very well per patient) >Seizure Disorder, POA Stable, Continue patient's home medications >Anxiety and Depression, POA Stable Continue patient's home medications when appropriate >Hypertension Essential, POA Stable Continue patient's home medications when appropriate CODE STATUS: Full resuscitation Patient is admitted under inpatient status with expected length of stay greater than 2 midnights due to severity of presenting symptoms, risk of adverse event, and complexity of treatment plan. Exam Vital Signs (Last) Date Time Temp Pulse Resp B/P Pulse Ox O2 Delivery O2 Flow Rate FiO2 04/16/17 05:35 36.3 81 16 106/56 96 Room Air Exam Gen: Well-developed elderly female who appears in no acute distress, alert and oriented 3 CV: RRR, soft systolic murmur noted, peripheral pulses intact and equal Respiratory: CTAB, no wheezing or rhonchi noted, normal respiratory effort Abdomen: Soft, bs +, non tender, No guarding or rebound Skin: Warm, dry, intact, normal skin turgor Psychiatric: Appropriate mood and affect, linear thought process, cooperative and pleasant Ext: No edema Test 04/12/17 19:15 04/13/17 01:55 04/13/17 03:55 04/13/17 05:16 Prothrombin Time 11.1sec (8.1-12.5) Prothromb Time International Ratio 1.04ratio Magnesium Level 2.2mg/dL (1.6-2.6) Total Bilirubin 0.3mg/dL (0.0-1.2) Aspartate Amino Transf (AST/SGOT) 19U/L (0-50) Alanine Aminotransferase (ALT/SGPT) 12U/L (0-32) Alkaline Phosphatase 122U/L (25-165) Total Protein 8.3g/dL (6.4-8.4) Albumin 3.9g/dL (3.4-5.0) Lipase 17U/L (13-60) Urine Color Straw (YELLOW) Urine Appearance Hazy (CLEAR,HAZY) Urine pH 7.0 (5.0-8.0) Urine Specific [place] 1.033 (1.003-1.035) Urine Protein Negativemg/dL (NEG,TRACE) Urine Glucose (UA) Negativemg/dL (NEGATIVE) Urine Ketones 15mg/dL (NEGATIVE) Urine Occult Blood Trace (NEGATIVE) Urine Nitrite Negative (NEGATIVE) Urine Bilirubin Negative (NEGATIVE) Urine Urobilinogen Normalmg/dL (NORMAL) Urine Leukocyte Esterase Negative (NEGATIVE) Urine RBC 0-2/hpf (0-2) Urine WBC 0-5/hpf (0-5) Urine Epithelial Cells Occasional/hpf (NONE-MOD) Urine Crystals None seen (NONE SEEN) Urine Bacteria None/hpf (NONE-FEW) Urine Hyaline Casts None/lpf (NONE) Urine Granular Casts None seen (NONE SEEN) Urine Waxy Casts None seen (NONE SEEN) Urine Red Blood Cell Casts None seen (NONE SEEN) Urine White Blood Cell Casts None seen (NONE SEEN) Urine Mucus None seen (None Seen) Urine Trichomonas None seen (NONE SEEN) Urine Yeast None (NONE SEEN) Urinalysis Comment None Urine Culture Reflexed Not indicated Hold Blount Top Tube Received (Received) Lactic Acid Level 0.7mmol/L (0.4-2.0) C-Reactive Protein 23.3mg/dL (0.0-0.5) Test 04/14/17 07:17 04/16/17 05:03 Neutrophils (%) (Auto) 67.3% (40-74) Lymphocytes (%) (Auto) 21.1% (14-46) Monocytes (%) (Auto) 10.0% (4-12) Eosinophils (%) (Auto) 1.2% (0-5) Basophils (%) (Auto) 0.1% (0-3) Procalcitonin 0.05ng/mL (0.00-0.08) White Blood Count 5.5th/mm3 (3.8-10.1) Red Blood Count 3.44mil/mm3 (3.90-5.20) Hemoglobin 10.9g/dL (12.0-15.6) Hematocrit 33.2% (35.0-46.0) Mean Corpuscular Volume 96.5fL (81-100) Mean Corpuscular Hemoglobin 31.7pg (27.0-35.0) Mean Corpuscular Hemoglobin Concent 32.8% (32.0-37.0) Red Cell Distribution Width 12.9% (12.3-15.4) Platelet Count 304bil/L (150-400) Sodium Level 142mEq/L (134-144) Potassium Level 4.1mEq/L (3.5-5.2) Chloride Level 103mEq/L (97-108) Carbon Dioxide Level 29mmol/L (18-29) Blood Urea Nitrogen 6mg/dL (8-27) Creatinine 0.61mg/dL (0.57-1.00) Estimat Glomerular Filtration Rate 137mL/min (>59) Glucose Level 95mg/dL (60-99) Calcium Level 8.7mg/dL (8.5-10.1) Discharge Medications Discharge Medications Alendronate Sodium (Fosamax) 70 Mg Tablet 70 MG PO QW saturday (Reported) Buspirone (Buspirone) 5 Mg Tablet 5 MG PO BID (Reported) Calcium Carbonate/Vitamin D3 (Os-Ranulfo 500+D3 Caplet) 500 Mg-600 Tablet 1 EACH PO DAILY (Reported) Cholecalciferol (Vitamin D3) (Vitamin D3) 1,000 Unit Tab.chew 1,000 UNIT PO DAILYWD (Reported) Lactobacillus Acidophilus (Probiotic) 1 Each Capsule 1 EACH PO DAILYWD (Reported ) Lamotrigine (Lamictal) 200 Mg Tablet 250 MG PO BID (Reported) Metronidazole (Flagyl) 500 Mg Tablet 500 MG PO Q6H Prescribed by: SANIA MANN DO Multivitamin (Multivitamins) 1 Each Capsule 1 EACH PO DAILY (Reported) Primidone (Primidone) 50 Mg Tablet 150 MG PO AM (Reported) Primidone (Primidone) 50 Mg Tablet 200 MG PO HS (Reported) Primidone (Primidone) 50 Mg Tablet 150 MG PO at 1400 (Reported) Sulfamethoxazole/Trimeth 800-160 mg (Bactrim DS 800-160 mg) 1 Each Tablet 1 TABLET PO BID Prescribed by: SANIA MANN DO Venlafaxine (Venlafaxine) 75 Mg Tablet 37.5 MG PO AM (Reported) As needed Lorazepam (Lorazepam) 0.5 Mg Tablet 0.5 MG PO HS PRN PRN For Insomnia (Reported ) Additional med instructions Please take antibiotics as prescribed. May take probiotics, use the fiber content sheet as guideline to eat low fiber diet for 1-2 weeks, slowly increase fiber thereafter. Followup Plan Follow-up plan Please follow up with general surgery Dr. Krishnan and Dr. Chavez in 2 weeks F/U with PCP in one week. Discharge Diet: Other (as above) Discharge Activity: No restrictions Time spent Greater than 30 minutes was spent in preparation of discharge with greater than 50% of that time dedicated to patient counseling and coordination of care. . Sania Mann DO Apr 16, 2017 12:29
--- NOTE | 2017-04-16 13:19 | PCM.PNSURG ---
Subjective Date of Service: Apr 16, 2017 Visit Information: Reason for Visit Diverticulitis, Sigmoid Abscess Surgery/Surgery Date Post-Op Day # Date of Admission: Apr 13, 2017 at 03:04 Hospital Day # Subjective: Feels quite well today. She is tolerating a regular diet without increased pain No nausea or vomiting Passing flatus but no BM yet Afebrile Desires to go home Objective Vital Sign- Last 8 Hours Date Time Temp Pulse Resp B/P Pulse Ox O2 Delivery O2 Flow Rate FiO2 04/16/17 05:35 36.3 81 16 106/56 96 Room Air Intake and Output- Last 8 Hour 04/16/17 Cumulative From/Thru 07:00 04/12/17 18:35 - 04/16/17 05:35 Intake Total 618 ml 8932 ml Output Total 1650 ml 8000 ml Balance -1032 ml 932 ml Intake Oral 450 ml 6250 ml IV Total 168 ml 2682 ml Output Urine Total 1650 ml 8000 ml # Bowel Movements 0 0 General: Alert, Oriented X3, Cooperative, No Acute Distress Neck: Supple, Full Range of Motion Lungs: Normal Air Movement Abdomen: Benign, Soft, Non-tender, Non-distended Extremities: Warm Neuro: Grossly Neurologically Intact Result Diagram: 04/16/17 0503 04/16/17 0503 Assessment & Plan Impression 76F with recurrent sigmoid diverticulitis which has symptomatically resolved with antibiotics. Problems: Plan Ok for discharge home today Please continue antibiotics for a total course of 10 days Regular diet Aggressive bowel regimen + fiber supplementation while at home Follow up in general surgery clinic with Dr. Moscoso in 1 week to discuss elective sigmoidectomy VTE Prophylaxis: Sub-Q Heparin (Unfractionated) Resuscitation Status: CPR: Attempt Resuscitation Gilberto Bradshaw MD Apr 16, 2017 13:19
--- NOTE | 2017-04-16 13:21 | NUR ---
Discharge Pt discharged to home with spouse via private vehicle at 1315 hrs. PIV removed intact. Pain controlled. VSS. All personal possessions sent with pt. Follow up instructions given to pt along with low fiber diet list.
--- NOTE | 2017-04-16 13:53 | NUR ---
Social Work- Discharge Data: EMR reviewed. Pt to discharge today. notified LAW[facility]ERS that HH is not indicated at this time. Pt to discharge home with to transport via POV. SW will continue to follow. Assessment: Pt who is independent at baseline. Plan: Pt to discharge home with to transport via POV. SW will continue to follow. CICI Venegas
== END 2017-04-16 13:15 | disposition home or self-care (01) | DRG 392 ==
LOC: SED 18:28 → OSC 04-13 03:04
PROVIDERS: ADMIT Internal Medicine; ATTEND Internal Medicine
DX: K57.20 Diverticulitis of large intestine with perforation and abscess without bleeding (principal); G40.909 Epilepsy, unspecified, not intractable, without status epilepticus; I10 Essential (primary) hypertension; F41.8 Other specified anxiety disorders

== ENCOUNTER 2017-04-18 10:16 | Emergency (ER) | payer MEDICARE, OTHER ==
[~2017-04-18] VITALS: Ht 154.9 cm; Wt 61.6 kg
[~2017-04-18 10:16] MED LIST changes: -AMOX-366 PO; +CHOL10008 PO; +LACT1CAP65 PO; +LORA0.5T PO; -LORA1TAB PO; -LORA2TAB PO; +METR500T PO; -SIMV40TA5 PO; +SULF1TAB35 PO; -TOPI25TA26 PO
[2017-04-18 10:20] VITALS: BP 134/72; PULSE 112; RESP 14; O2SAT 98
--- NOTE | 2017-04-18 10:30 | ED.REPORT ---
HPI-Abd Pain F 40 and Over Date of Service Apr 18, 2017 ED Provider: Main Darnell Patient is a 76 year old female with a hx of seizures, HTN, and asthma who presents to the ED complaining of nausea onset this morning. She was admitted for diverticulitis w/ abscess and discharged 2 days ago with Flagyl and Bactrim. Associated symptoms include mild abdominal pain, sweats, decreased appetite, and vomiting x1 this morning. She denies hematemesis, fevers, or any other symptoms. She last ate this morning. Patient takes primidone and lamotrigine for her seizures. Nursing Notes Stated Complaint: NAUSEA Chief Complaint: Female Abdominal Pain Nursing Notes Reviewed: Yes Allergies: Coded Allergies: peanut oil (Verified Allergy, Mild, 04/12/17) Egg White (Verified Allergy, Unknown, 04/12/17) Egg Yolk (Verified Allergy, Unknown, 04/12/17) [place] (Verified Allergy, Unknown, 04/12/17) peanut (Verified Allergy, Unknown, 04/12/17) Scheduled Alendronate Sodium (Fosamax) 70 Mg Tablet 70 MG PO QW saturday Amoxicillin/Clav K 875-125 mg (Augmentin 875-125 mg) 1 Each Tablet 1 TABLET PO BID Buspirone (Buspirone) 5 Mg Tablet 5 MG PO BID Calcium Carbonate/Vitamin D3 (Os-Ranulfo 500+D3 Caplet) 500 Mg-600 Tablet 1 EACH PO DAILY Cholecalciferol (Vitamin D3) (Vitamin D3) 1,000 Unit Tab.chew 1,000 UNIT PO DAILYWD Lactobacillus Acidophilus (Probiotic) 1 Each Capsule 1 EACH PO DAILYWD Lamotrigine (Lamictal) 200 Mg Tablet 250 MG PO BID Metronidazole (Flagyl) 500 Mg Tablet 500 MG PO Q6H Multivitamin (Multivitamins) 1 Each Capsule 1 EACH PO DAILY Primidone (Primidone) 50 Mg Tablet 150 MG PO AM Primidone (Primidone) 50 Mg Tablet 200 MG PO HS Primidone (Primidone) 50 Mg Tablet 150 MG PO at 1400 Sulfamethoxazole/Trimeth 800-160 mg (Bactrim DS 800-160 mg) 1 Each Tablet 1 TABLET PO BID Venlafaxine (Venlafaxine) 75 Mg Tablet 37.5 MG PO AM Scheduled PRN Lorazepam (Lorazepam) 0.5 Mg Tablet 0.5 MG PO HS PRN PRN For Insomnia Ondansetron ODT (Zofran ODT) 4 Mg Tablet 4 MG PO Q4H PRN PRN For Nausea General Time Seen by MD: 10:29 Chief Complaint Vomiting mild Hx Obtained From: Patient, Spouse Arrived By: Walk-in Sudden in Onset?: Yes Onset Occurred: 1 - 4 hours ago Symptom Duration: Since onset Recent Healthcare: Recent hospitalization Risk Factors )( AAA Risk Stratification HypertensionNo Prior AAA, No Smoking Risk factors reviewed Past Medical History Past Medical History Notes: Meds not reconciled: Pt has a paper list: Medical 200 mg twice a day Primidone 50 mg 2 in the morning for a bedtime Propranolol 10 mg in the morning Lorazepam 2 mg when necessary Simvastatin 40 mg by mouth daily Clonazepam 1 mg at dinnertime Venlafaxine 75 mg in the morning Buspirone 5 mg at dinnertime Alendronate 70 mg a week Multivitamins and probiotics Past Medical History 1. Diverticulitis 2. Seizure Disorder 3. Hypertension 4. Depression 5. Insomnia 6. Asthma Past Surgical History 1. Tonsillectomy 2. Ovarian Fibroid Removal 3. x2 4. Appendectomy 5. Tubal Ligation 6. Hysterectomy Smoking History Never Smoker Social History Alcohol Use: Denies alcohol use Drug Use: Denies drug use Other Social History: Ambulatory Status Independent Review of Systems +decreased appetite Constitutional: Denies: Fever GI: Reports: Abdominal pain, Nausea, Vomiting, Denies: Hematemesis Complete sys rev & neg: except as marked. Skin: Reports Diaphoresis Physical Exam Vital Signs Vital Signs (First) Date Time Temp Pulse Resp B/P Pulse Ox O2 Delivery O2 Flow Rate FiO2 04/18/17 10:20 36.9 112 14 134/72 98 Room Air Initial VS: Reviewed, Vital signs abnormal Head / Eyes: Atraumatic, Normocephalic Neck: Full range of motion Skin: Warm, Dry Neurologic: Alert, Oriented, Nonfocal Psychiatric: Mood/affect normal, Behavior normal, Normal thought content General/Constitutional: Awake, Alert Distress / Hydration: Positive: Distress mild Respiratory / Chest: Breath sounds NL, Breath sounds = bilat, No respiratory distress Cardiovascular: Heart rate NL, Regular rhythm, Heart sounds NL, No murmurs Abdomen: Atraumatic, Soft Mild LLQ tenderness Back: Inspection NL Interpretation & Diagnostics Lab Results Interpretation Result Diagram: 04/18/17 1125 04/18/17 1125 Test 7/27/17 11:01 04/18/17 11:25 04/18/17 14:40 Urine Color Yellow (YELLOW) Urine Appearance Hazy (CLEAR,HAZY) Urine pH 7.0 (5.0-8.0) Urine Specific [place] 1.020 (1.003-1.035) Urine Protein Negativemg/dL (NEG,TRACE) Urine Glucose (UA) Negativemg/dL (NEGATIVE) Urine Ketones Negativemg/dL (NEGATIVE) Urine Occult Blood Negative (NEGATIVE) Urine Nitrite Negative (NEGATIVE) Urine Bilirubin Negative (NEGATIVE) Urine Urobilinogen Normalmg/dL (NORMAL) Urine Leukocyte Esterase Trace (NEGATIVE) Urine RBC 0-2/hpf (0-2) Urine WBC 0-5/hpf (0-5) Urine Epithelial Cells Occasional/hpf (NONE-MOD) Urine Crystals Amorphous phosphates Urine Bacteria Few/hpf (NONE-FEW) Urine Hyaline Casts None/lpf (NONE) Urine Granular Casts Occasional (NONE SEEN) Urine Waxy Casts None seen (NONE SEEN) Urine Red Blood Cell Casts None seen (NONE SEEN) Urine White Blood Cell Casts None seen (NONE SEEN) Urine Mucus None seen (None Seen) Urine Trichomonas None seen (NONE SEEN) Urine Yeast None (NONE SEEN) Urinalysis Comment None Urine Culture Reflexed Indicated White Blood Count 7.8th/mm3 (3.8-10.1) Red Blood Count 4.34mil/mm3 (3.90-5.20) Hemoglobin 13.7g/dL (12.0-15.6) Hematocrit 41.0% (35.0-46.0) Mean Corpuscular Volume 94.5fL (81-100) Mean Corpuscular Hemoglobin 31.6pg (27.0-35.0) Mean Corpuscular Hemoglobin Concent 33.4% (32.0-37.0) Red Cell Distribution Width 13.0% (12.3-15.4) Platelet Count 401bil/L (150-400) Neutrophils (%) (Auto) 77.4% (40-74) Lymphocytes (%) (Auto) 13.7% (14-46) Monocytes (%) (Auto) 7.5% (4-12) Eosinophils (%) (Auto) 0.9% (0-5) Basophils (%) (Auto) 0.1% (0-3) Sodium Level 136mEq/L (134-144) Potassium Level 4.1mEq/L (3.5-5.2) Chloride Level 96mEq/L (97-108) Carbon Dioxide Level 24mmol/L (18-29) Blood Urea Nitrogen 10mg/dL (8-27) Creatinine 0.71mg/dL (0.57-1.00) Estimat Glomerular Filtration Rate 115mL/min (>59) Glucose Level 145mg/dL (60-99) Calcium Level 10.1mg/dL (8.5-10.1) Magnesium Level 2.0mg/dL (1.6-2.6) Total Bilirubin 0.2mg/dL (0.0-1.2) Aspartate Amino Transf (AST/SGOT) 73U/L (0-50) Alanine Aminotransferase (ALT/SGPT) 41U/L (0-32) Alkaline Phosphatase 118U/L (25-165) Total Protein 8.4g/dL (6.4-8.4) Albumin 3.9g/dL (3.4-5.0) Lipase 16U/L (13-60) Lactic Acid Level 1.2mmol/L (0.4-2.0) CT Abd / Pelvis Interpretation IMPRESSION: 1. There are scattered colonic diverticula. There is persistent segmental thickening of the proximal sigmoid colon consistent with diverticulitis. Small fluid collection in the left lower quadrant anteriorly seen on last CT is no longer present. 2. A 4 mm nonobstructive left renal stone. 3. Moderate compression fracture of L4, stable. Dictated by: Dmitriy Watkins M.D. on 04/18/2017 at 14:04 Approved by: Dmitriy Watkins M.D. on 04/18/2017 at 14:28 Study type: Abdominal CT IV contrast Interpretation / Wet Read by: Interpret - Radiologist Re-Eval/Medical Decision Med Decision/Clinical Course 76-year-old female history of diverticulitis discharge 2 days ago for admission for diverticulitis with small abscess presenting with nausea since this morning. She had 1 episode of nonbloody nonbilious vomiting. She was discharged on Bactrim and Flagyl. She had very minimal left lower quadrant tenderness on exam today. This resolved while she was here. Her labs are reassuring. Her white blood cell count was normal. Her lactate was initially elevated at repeat was normal after IV fluids. CT scan and pelvis showed persistence of her diverticulitis but resolution of her abscess. Patient preferred to go home. This may be due to her Flagyl. She was changed to Bactrim and Augmentin. She has follow-up with her primary doctor tomorrow. She will return sooner if she had any worsening abdominal pain, nausea vomiting, fevers chills, any other new or worsening symptoms. Re-Evaluation/Progress : Time of Eval: 14:40 Re-Evaluation/Progress Note: Discussed imaging and lab results. Discussed plan for discharge. Patient understands and agrees with plan. All questions addressed at this time. Counseled Regarding: Diagnosis, Lab results, Need for follow-up, When/why to return to ED Discharge & Departure Primary Impression: Diverticulitis Diverticulitis site: unspecified part of intestinal tract Diverticulitis bleeding: without bleeding Diverticulitis complication: without perforation or abscess Qualified Code: K57.92 - Diverticulitis of intestine, part unspecified, without perforation or abscess without bleeding Disposition: Home Discharge Condition All VS Reviewed: Yes Condition: Stable Patient Instructions: Diverticulitis (ED), Diverticulitis Diet (ED) Additional Instructions: Thank you for entrusting us with your care. Your CT scan indicates you still have diverticulitis. You do not have an abscess or perforation. Your labs are reassuring. Stop taking Flagyl. Start taking Augmentin as prescribed. You received one dose in the emergency department. Take another dose tonight. Take Zofran every 4 hours as needed for nausea. Follow up with your primary doctor tomorrow. Return to the emergency department if you experience bloody stools or vomit, increasing abdominal pain, fevers, or any other new or worsening symptoms. Referrals: Josue Peterson MD (PCP) Scribe Attestation Portions of this note were transcribed by Reji Gee. I, Dr. Darnell personally performed the history, physical exam and medical decision-making; I reviewed and confirmed the accuracy of the information in the transcribed note. copies to: Josue Peterson MD, Ben M MD Apr 18, 2017 10:29 REJI GEE Apr 18, 2017 11:01
[2017-04-18] MEDS ORDERED: 0.9% Sodium Chloride 1,000 ML IV ONE (10:31)
[2017-04-18] MEDS ORDERED: Ondansetron 2 mg/mL 2 mL Inj IVPUSH PRN ×2 (10:35→11:05)
[2017-04-18] MEDS ORDERED: 0.9% Sodium Chloride 500 ML IV ONE (11:02)
[2017-04-18] MEDS ORDERED: Piperacillin-Tazo 3.375 Gm Inj 3.375 GM in Dextrose 5% Minibag Plus 50 ML IV ONE (11:15)
[2017-04-18 11:26] LABS: APPEARANCE,URINE HAZY (CLEAR,HAZY); COLOR,URINE YELLOW (YELLOW); OCCULT BLOOD,URINE NEGATIVE (NEGATIVE); UROBILINOGEN,URINE NORMAL (NORMAL)
[2017-04-18 11:34] LABS: BASOPHILS % (AUTO) 0.1 % (0-3); EOSINOPHILS % (AUTO) 0.9 % (0-5); MONOCYTES % (AUTO) 7.5 % (4-12); Mean Corpuscular Hemoglobin 31.6 pg (27.0-35.0); Mean Corpuscular Volume 94.5 fL (81-100); NEUTROPHILS % (AUTO) 77.4 % (40-74); Platelet Count 401 bil/L (150-400)
--- NOTE | 2017-04-18 14:31 | DRSVH ---
PROCEDURE: CT ABDOMEN AND PELVIS WITH CONTRAST ([id number]) INDICATIONS: LLQ pain h/o diverticulitis TECHNIQUE: After the administration of intravenous contrast, 5 mm thick sections acquired from the diaphragm to the symphysis. 5 mm coronal and sagittal reformats were acquired. For radiation dose reduction, the following was used: automated exposure control, adjustment of mA and/or kV according to patient siz e. COMPARISON: [facility], CT, CT ABD PELVIS W CON, 01/21/2017, 0:55. [facility], CT, CT ABD PELVIS W CON, 04/13/2017, 0:17. FINDINGS: Image quality: Excellent. ABDOMEN: Lung bases: Lung bases are clear. Heart size is normal. There is a small hiatal hernia. Solid organs: Liver and spleen are normal in size and enhancement. Gallbladder is normal. Biliary system is non dilated. Pancreas enhances normally. No adrenal nodules. Kidneys demonstrate normal size and enhancement, without hydronephrosis. There is a 4 mm nonobstructive stone in the inferior p ole of the left kidney. Peritoneum and bowel: There are scattered colonic diverticula. There is persistent thickening in the proximal sigmoid colon consistent with diverticulitis. Small fluid collection in the left lower quad rant distended thickened sigmoid colon seen on 04/13/2017 is no longer visualized. Bowel loops demonst rate normal caliber. No free air. A trace amount of free fluid is present in the left lower quadran t. Nodes and vessels: No retroperitoneal or mesenteric adenopathy by size criteria. Aorta and inferior vena cava are normal in size. Miscellaneous: No ventral hernias. PELVIS: Genitourinary: Bladder wall thickness is normal. Miscellaneous: No inguinal hernias or adenopathy. Bones: Moderate compression fracture of L4 is unchanged sions. No vertebral body compression fractur es. IMPRESSION: 1. There are scattered colonic diverticula. There is persistent segmental thickening of the proximal sigmoid colon consistent with diverticulitis. Small fluid collection in the left lower quadrant anter iorly seen on last CT is no longer present. 2. A 4 mm nonobstructive left renal stone. 3. Moderate compression fracture of L4, stable. Dictated by: Dmitriy Watkins M.D. on 04/18/2017 at 14:04 Approved by: Dmitriy Watkins M.D. on 04/18/2017 at 14:28
[2017-04-18] MEDS ORDERED: ONDA4TAB9 PO (14:52)
[2017-04-18] MEDS ORDERED: AMOX-366 PO (14:52)
[2017-04-18] MEDS ORDERED: Ondansetron 2 mg/mL 2 mL Inj IVPUSH ONE (14:55)
[2017-04-18 15:54] VITALS: BP 140/74; PULSE 102; RESP 20; O2SAT 97
== END 2017-04-18 15:55 | disposition home or self-care (01) ==
LOC: SED 10:16
DX: K57.92 Diverticulitis of intestine, part unspecified, without perforation or abscess without bleeding (principal); I10 Essential (primary) hypertension; J45.909 Unspecified asthma, uncomplicated; R56.9 Unspecified convulsions; Z90.89 Acquired absence of other organs; Z86.69 Personal history of other diseases of the nervous system and sense organs
CPT/HCPCS: 36415; 74177; 80053; 81000; 83605; 83690; 83735; 85025; 87040; 87086; 96361; 96365; 96375; 99285; J2405; J2543; J7030; Q9967